=== PATIENT | female | born 1950 | race Hispanic/Latino ===

== ENCOUNTER 2019-01-10 09:03 | Observation (INO) | payer MEDICARE ==
[2019-01-06 14:13] LABS: BASOPHILS % 0.5 % (0.0-1.0); EOSINOPHILS # (AUTO) 0.2 (0.0-0.4); EOSINOPHILS % 3.3 % (0.0-6.0); HEMATOCRIT 36.1 % (34.2-44.1); HEMOGLOBIN 11.7 g/dL (12.0-16.0); LYMPHOCYTES # (AUTO) 0.6 (1.0-3.2); MEAN CORPUSCULAR HEMOGLOBIN 32.4 pg (28-32); MEAN CORPUSCULAR HGB CONC 32.4 g/dL (31-35); MONOCYTES # (AUTO) 0.9 (0.2-0.8); NEUTROPHILS # (AUTO) 5.6 (2.1-6.9); NEUTROPHILS % 75.9 % (38.7-80.0); PLATELET COUNT 398 x10e3/uL (140-360); RED BLOOD COUNT 3.61 x10e6/uL (3.6-5.1); RED CELL DISTRIBUTION WIDTH 15.3 % (11.7-14.4)
[2019-01-06 14:28] LABS: INR 0.85; PROTHROMBIN TIME 12.1 seconds (11.9-14.5)
[2019-01-06 14:37] LABS: ALBUMIN 3.7 g/dL (3.5-5.0); ALBUMIN/GLOBULIN RATIO 0.9 (0.8-2.0); ANION GAP 15.3 mmol/L (8-16); CREATININE, SERUM 1.61 mg/dL (0.57-1.11); POTASSIUM 5.3 mmol/L (3.5-5.1)
--- NOTE | 2019-01-06 16:28 | NUR ---
Dr. Merrill notified of elevated labs: BUN 36, creatinine 1.61, and potassium 5.3. No new orders at this time.
[2019-01-10] VITALS (7 sets, daily range): BP systolic 142–183; BP diastolic 60–85
[~2019-01-10] VITALS: Ht 160 cm; Wt 83.5 kg
--- OUTSIDE RECORDS SUMMARY | 2019-01-10 13:45 | XMS REPORT ---
Author [facility] Address Unknown Phone Unavailable Care Team Providers Care Crab Fisherman Name Role Phone Unavailable Unavailable Payers Payer Name Policy Type Policy Number Effective Date Expiration Date Problems This patient has no known problems. Allergies, Adverse Reactions, Alerts Allergy Name Allergy Type Status Severity Reaction(s) Onset Date Inactive Date Treating Clinician Comments No Known Allergies DA Active U 2015-03-28 00:00:00 Medications This patient has no known medications. Results Test Description Test Time Test Comments Text Results Atomic Results Result Comments PROTHROMBIN TIME 2018-09-30 09:16:00 PROTHROMBIN TIME PATIENT (test code=PTP) 11.2 seconds 9.0-14.0 INTERNATIONAL NORMAL RATIO (test code=INR) 0.9 0.8-1.2 The therapeutic range for oral anticoagulant therapy formost indications is an international normalized ratio (INR)of between 2.0 and 3.0. The recommended therapeutic INRrange for various clinical situations is listed below: Clinical Situation INR range Pulmonary e mbolism treatment (2.0-3.0)Venous thrombosis treatmentVenous thrombosis prophylaxis (high risk surgery)Prevention of systemic embolism from: Acute myocardial infarction Valvular heart disease Atrial fibrillation Mechanical prosthetic heart valves (2.5-3.5) IS PATIENT ON ANTICOAGULANTS? NTHROMBOPLASTIN TIME [id number] 09:16:00* Test Item Value Reference Range Comments THROMBOPLASTIN TIME PARTIAL (test code=PTT) 31.3 seconds 25.0-36.5 IS PATIENT ON ANTICOAGULANTS? NB-TYPE NATRIURETIC [id number] 09:10:00* Test Item Value Reference Range Comments B-TYPE NATRIURETIC PEPTIDE (test code=BNP) 505.60 pgram/mL 0-100 CBC W/O [id number] 08:39:00* Test Item Value Reference Range Comments WHITE BLOOD CELL (test code=WBC) 9.3 K/mm3 4.5-12.5 RED BLOOD CELL (test code=RBC) 3.27 mill/mm3 3.7-5.2 HEMOGLOBIN (test code=HGB) 9.8 gram/dL 11.5-15.5 HEMATOCRIT (test code=HCT) 31.5 % 36.0-46.0 MEAN CELL VOLUME (test code=MCV) 96.3 fL 80-98 MEAN CELL HGB (test code=MCH) 30.0 picogram 27.0-33.0 MEAN CELL HGB CONCETRATION (test code=MCHC) 31.1 gram/dL 33.0-36.0 RED CELL DISTRIBUTION WIDTH (test code=RDW) 13.8 % 11.6-16.2 PLATELET COUNT (test code=PLT) 348 K/mm3 150-450 MEAN PLATELET VOLUME (test code=MPV) 9.3 fL 6.7-11.0 BASIC METABOLIC [id number] 08:31:00* Test Item Value Reference Range Comments SODIUM (test code=NA) 129 mmol/L 136-145 POTASSIUM (test code=K) 4.6 mmol/L 3.5-5.1 CHLORIDE (test code=CL) 98.0 mmol/L 98-107 CARBON DIOXIDE (test code=CO2) 21.0 mmol/L 21-32 ANION GAP (test code=GAP) 14.6 10-20 GLUCOSE (test code=GLU) 95 mg/dL 74-106 BLOOD UREA NITROGEN (test code=BUN) 39 mg/dL 7-18 GLOMERULAR FILTRATION RATE (test code=GFR) 30 mL/min >=60 Estimated GFR by using Modified MDRD formula.Chronic kidney disease is defined as either kidney damageor GFR <60 mL/min/1.73 m2 for >3 months. CREATININE (test code=CREAT) 1.70 mg/dL 0.55-1.02 Note change in reference range due to change in reagent. BUN/CREATININE RATIO (test code=BUN/CREA) 22.9 10-20 CALCIUM (test code=CA) 8.9 mg/dL 8.5-10.1 HEPATIC FUNCTION [id number] 08:31:00* Test Item Value Reference Range Comments TOTAL PROTEIN (test code=PROT) 8.1 gram/dL 6.4-8.2 ALBUMIN (test code=ALB) 3.2 g/dL 3.4-5.0 GLOBULIN (test code=GLOB) 4.9 gram/dL 2.7-4.2 ALBUMIN/GLOBULIN RATIO (test code=A/G) 0.7 0.75-1.50 BILIRUBIN TOTAL (test code=BILT) 0.40 mg/dL 0.0-1.0 BILIRUBIN DIRECT (test code=BILD) 0.15 mg/dL 0.0-0.20 SGOT/AST (test code=AST) 17 IUnit/L 15-37 SGPT/ALT (test code=ALT) 22 IUnit/L 12-78 ALKALINE PHOSPHATASE TOTAL (test code=ALKP) 79 IUnit/L 45-117 Note change in reference range due to change in reagent. [id number] 08:31:00* Test Item Value Reference Range Comments LIPASE (test code=LIP) 190 U/L 73.0-393.0 [id number] 08:31:00* Test Item Value Reference Range Comments MAGNESIUM (test code=MAG) 1.9 mg/dL 1.8-2.4 [id number] 08:31:00* Test Item Value Reference Range Comments TROPONIN-I (test code=TROPI) <0.015 ng/mL 0-0.045 BASIC METABOLIC [id number] 08:22:00* Test Item Value Reference Range Comments SODIUM (test code=NA) 129 mmol/L 136-145 POTASSIUM (test code=K) 4.6 mmol/L 3.5-5.1 CHLORIDE (test code=CL) 98.0 mmol/L 98-107 CARBON DIOXIDE (test code=CO2) mmol/L 21-32 ANION GAP (test code=GAP) 10-20 GLUCOSE (test code=GLU) mg/dL 74-106 BLOOD UREA NITROGEN (test code=BUN) mg/dL 7-18 GLOMERULAR FILTRATION RATE (test code=GFR) mL/min >=60 CREATININE (test code=CREAT) mg/dL 0.55-1.02 BUN/CREATININE RATIO (test code=BUN/CREA) 10-20 CALCIUM (test code=CA) mg/dL 8.5-10.1 HEPATIC FUNCTION [id number] 08:22:00* Test Item Value Reference Range Comments TOTAL PROTEIN (test code=PROT) gram/dL 6.4-8.2 ALBUMIN (test code=ALB) g/dL 3.4-5.0 GLOBULIN (test code=GLOB) gram/dL 2.7-4.2 ALBUMIN/GLOBULIN RATIO (test code=A/G) 0.75-1.50 BILIRUBIN TOTAL (test code=BILT) mg/dL 0.0-1.0 BILIRUBIN DIRECT (test code=BILD) mg/dL 0.0-0.20 SGOT/AST (test code=AST) IUnit/L 15-37 SGPT/ALT (test code=ALT) IUnit/L 12-78 ALKALINE PHOSPHATASE TOTAL (test code=ALKP) IUnit/L 45-117 [id number] 08:22:00* Test Item Value Reference Range Comments LIPASE (test code=LIP) U/L 73.0-393.0 [id number] 08:22:00* Test Item Value Reference Range Comments MAGNESIUM (test code=MAG) mg/dL 1.8-2.4 [id number] 08:22:00* Test Item Value Reference Range Comments TROPONIN-I (test code=TROPI) ng/mL 0-0.045 - XR CHEST 1 [id number] 08:22:00 FAX: Diego Remy MD [phone] [place]: [address]: REG FAX: Darcy Morrow MD [phone] Name: KAREN AMBRIZ [facility] : 1950 Age/S: 67/F [address] [facility] Unit #: [id number] Loc: [place] [address] Phys: Darcy Morrow MD Acct: [id number] Dis Date: Status: REG ER PHONE #: [phone] Exam Date: 09/30/2018 0749 FAX #: [phone] Reason: Shortness of Breath EXAMS: CPT CODE: [id number] XR CHEST 1 V 28128 HISTORY: Shortness of breath. COMPARISON: April 18, 2018. Mild congestion. Small bibasal effusions. Dependent changes. Cardiomegaly. IMPRESSION: Mild congestion with small basilar effusions. at 0822 Reported and signed by: Abbe Yip M.D. CC: Diego Ledesma MD; Darcy Morrow MD Technologist: HOLLAND KULKARNI JR Trntxrd Date/Time/By: 09/30/2018 (0822) : By: [email or web address] Orig Print D/T: S: 09/30/2018 (0825) PAGE 1 Signed Report COLON [id number] 12:35:00 RUN DATE: 05/18/18 [facility] PAGE 1 RUN TIME: 1235 Specimen Inqui ry RUN USER: INTERFACE PATIENT: KAREN AMBRIZ ACCT #: [id number] [facility] #: [id number] AGE/SX: 67/F ROOM: RE05/17/18REG DR: Diego Ledesma MD : 52 BED: DIS: STATUS: [facility] TLOC: SPEC #: [id number] RECD: 05/17/18 STATUS: ZACHARY RE #: [id number] AMI: 05/17/[address] [facility] [address]: Diego Ledesma MD ENTERED: 05/17/18 SP TYPE: COLONBX OTHR DR: ORDERED: GROSS PROCEDURES: GROSS (05/18/18-1212) TISSUES: 1. ILEOCECAL VALVE - HS 2. DESCENDING COLON - HS 3. SI GMOID - POLYP HS 4. RECTUM, NOS - POLYP HS CLINICAL HISTORY C OLLECTION DATE: 05/17/18 COLON CANCER SCREENING POST-OP DIAGNOSIS: COLON POLYPS, INTERNAL HEMORRHOIDS FINAL DIAGNOSIS Ileocecal valve, hot bi opsy: COLONIC MUCOSA WITH SCATTERED PIGMENT-LADEN MACROPHAGES IN THE LAMI NA PROPRIA NO ACUTE INFLAMMATORY INFILTRATES IDENTIFIED N EGATIVE FOR MALIGNANCY Descending colon, hot biopsy: CAUTERIZED COL ONIC MUCOSA WITH A PROMINENT LYMPHOID AGGREGATE AND SCATTERED PIGMENT-L FRITZ MACROPHAGES IN THE LAMINA PROPRIA NEGATIVE FOR MALIGNANCY Sigm oid colon polyp, hot snare: TUBULAR ADENOMA NEGATIVE FOR MALIGNANC Y Rectal polyp, hot snare: HYPERPLASTIC POLYP WITH A PROMINENT LYMP HOID AGGREGATE NEGATIVE FOR MALIGNANCY IZZY/sm D (2) [id number] CONTINUED ON NEXT PAGE RUN DATE: [facility] PAGE 2 RUN TIME: 1235 Specimen Inquiry RU N USER: INTERFACE ---- --------SPEC #: [id number] PATIENT: KAREN AMBRIZ #[id number] (Continued) MACROSCOPIC The first specimen is received in formalin, labeled with the patient's name, identified as "ileocec al valve biopsy", and consists of a carlson biopsy fragment measuring 0.1 cm. The second specimen is received in formalin, labeled with the patient's name, identified as "descending colon biopsy", and consists of a carlson biopsy fragment measuring 0.2 cm. The third specimen is received in formalin, labeled with the patient's name, identified as "sigmoid polyp HS", and consists of a carlson biopsy fragment measuring 0.25 cm. The fourth specimen is received in formalin, labeled with the patient's name, identified as "rectal polyp", and c onsists of a red-carlson nodular fragment of tissue measuring 0.3 cm. It is bise cted and submitted for microscopic evaluation in cassette (4). GROSS PER FORMED AT [facility] [address] [place] [id number] [phone] MICROSCOPIC MICROSCOPIC PERFOR MED AT [facility] All of the stains, including any controls perfor med, stain appropriately. [facility] [address] [place] [address], [place] [address] [phone] PERFORMING SITE Diagnosis performed at: [facility], [place] [address] [facility], [place] [address] Signed SIGNATURE ON FILE Armida Jimenes 05/18/18 1235 END OF REPORT
[2019-01-10] MEDS ORDERED: CALTRATE-600 W1 EACH PO (14:05)
[2019-01-10] MEDS ORDERED: FUROSEMIDE40 MG PO (14:05)
[2019-01-10] MEDS ORDERED: LOSARTAN POTAS100 MG PO (14:05)
[2019-01-10] MEDS ORDERED: METOPROLOL SUCC50 MG PO (14:05)
[2019-01-10] MEDS ORDERED: GLIMEPIRIDE2 MG PO (14:05)
[2019-01-10] MEDS ORDERED: TRADJENTA5 MG PO (14:05)
[2019-01-10] MEDS ORDERED: PANTOPRAZOLE SO40 MG PO (14:05)
[2019-01-10] MEDS ORDERED: PIOGLITAZONE HC45 MG PO (14:05)
[2019-01-10] MEDS ORDERED: LEVOTHYROXINE100 MC1 IV (14:05)
[2019-01-10] MEDS ORDERED: ATORVASTATIN CA20 MG PO (14:05)
[2019-01-10] MEDS ORDERED: TIZANIDINE HCL4 MG PO (14:05)
[2019-01-10] MEDS ORDERED: NOVOLOG MI100 UNIT/1 SC (14:05)
[2019-01-10] MEDS ORDERED: GABAPENTIN400 MG PO (14:05)
[2019-01-10] MEDS ORDERED: LIDOCAINE HCL 2% LOCAL 20 ML VIAL ONE (15:15)
[2019-01-10] MEDS ORDERED: FENTANYL CITRATE/PF 100MCG/2 ML INJ ONE (15:15)
[2019-01-10] MEDS ORDERED: HEPARIN SOD/SOD CHLORIDE 2,000 ML ONE (15:15)
[2019-01-10] MEDS ORDERED: IOPAMIDOL 300MG/ML 100 ML INFUS..BTL IV ONE ×2 (15:15→16:37)
[2019-01-10] MEDS ORDERED: MIDAZOLAM HCL 2 MG/2 ML VIAL ONE ×2 (15:15→16:19)
[2019-01-10] MEDS ORDERED: SODIUM CHLORIDE 0.9% 1000ML 1,000 ML ONE (15:16)
[2019-01-10] MEDS ORDERED: HYDRALAZINE HCL 20 MG/ML VIAL ONE (16:27)
[2019-01-10] MEDS ORDERED: PRASUGREL 10 MG TAB ONE (16:38)
[2019-01-10] MEDS ORDERED: ASPIRIN 325 MG TAB ONE (16:38)
--- NOTE | 2019-01-10 17:12 | NUR ---
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 Pt A/A VSS denies complaint. Family at bedside. RT groin dressing intact no s/sx of bleeding or hematoma noted. sandwich and pudding given to pt spouse is assisting with meal.
--- NOTE | 2019-01-10 18:36 | NUR ---
Pt transferred to room 186 Tele/obs via [facility] & bedside report to Denton SMITH Pt A/A VSS at bedside
--- NOTE | 2019-01-10 19:09 | NUR ---
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 patient is off of bed rest. patient is resting in bed comfortably. denies pain or discomfort. telemetry box is on. patient is to be discharged home tonight at 9pm. sheath dressing is clean dry and intact. will continue to monitor patient.
--- NOTE | 2019-01-13 06:53 | Operative Report ---
DATE OF PROCEDURE: 01/10/2019 SURGEON: Pernell Merrill MD INDICATIONS: 1. Peripheral arterial disease with claudication. 2. Coronary artery disease with abnormal stress test and angina. PROCEDURES PERFORMED: 1. Left heart catheterization, selective coronary angiography. 2. PTCA and stent placement to the mid left anterior descending artery. 3. Abdominal aortogram runoff to bilateral femoral arteries for right groin Mynx closure device. COMPLICATIONS: None. RECOMMENDATIONS: Dual antiplatelet therapy for at least 6 months. DESCRIPTION OF PROCEDURE: Access obtained in the right femoral artery. A 6-Colombian sheath was placed. Coronary angiography revealed mild disease in the circumflex and left main coronary artery. Right coronary artery 50% stenosis. Left anterior descending artery, mid 80% stenosis. LV end-diastolic pressure of 10. No gradient across the aortic valve on pullback. Abdominal aortogram runoff demonstrated mild diffuse peripheral arterial disease with three vessel runoff to both lower extremities, approximately 20% plaque burden diffusely. A decision was made to intervene on the left anterior descending artery. The patient received intravenous Angiomax for anticoagulation. The left main was cannulated using a 6-Colombian XB catheter. Primary stent 2.5 x 12 mm Resolute Bran deployed at 14 atmospheres. Excellent end result, less than 10% residual stenosis, TALIA-3 flow. No complications. Right groin repaired using Mynx closure device. The patient discharged home same day. Pernell Merrill MD KSB/MODL /[id number]
== END 2019-01-10 22:08 | disposition home or self-care (01) ==
LOC: CATH LAB 09:03 → IMCU 18:25
PROVIDERS: ADMIT Internal Medicine Interventional Cardiology; ATTEND Internal Medicine Interventional Cardiology
DX: I25.10 Atherosclerotic heart disease of native coronary artery without angina pectoris (principal); I70.213 Atherosclerosis of native arteries of extremities with intermittent claudication, bilateral legs; Z01.812 Encounter for preprocedural laboratory examination
CPT/HCPCS: 36200; 93458; C9600; 36415; 75630; 80053; 85025; 85610; 92928; C1760; C1769; C1874; C1887; G0378; J0360; J2001; J2250; J3010; J7030; Q9967

== ENCOUNTER 2020-04-26 18:51 | Inpatient (IN) | payer MEDICARE, OTHER ==
[~2020-04-26] VITALS: Ht 160 cm; Wt 90.7 kg
[~2020-04-26 18:51] MED LIST: ATORVASTATIN CA20 MG PO; CALTRATE-600 W1 EACH PO; FUROSEMIDE40 MG PO; GABAPENTIN400 MG PO; GLIMEPIRIDE2 MG PO; LEVOTHYROXINE100 MC1 IV; LOSARTAN POTAS100 MG PO; METOPROLOL SUCC50 MG PO; NOVOLOG MI100 UNIT/1 SC; PANTOPRAZOLE SO40 MG PO; PIOGLITAZONE HC45 MG PO; TIZANIDINE HCL4 MG PO; TRADJENTA5 MG PO
--- NOTE | 2020-04-26 19:36 | NUR ---
ER MD IN TRIAGE FOR INITIAL EVAL.
[2020-04-26 19:54] LABS: BASOPHILS % 0.2 % (0.0-1.0); EOSINOPHILS # (AUTO) 0.2 (0.0-0.4); EOSINOPHILS % 2.9 % (0.0-6.0); HEMATOCRIT 32.6 % (34.2-44.1); HEMOGLOBIN 10.2 g/dL (12.0-16.0); LYMPHOCYTES # (AUTO) 0.6 (1.0-3.2); MEAN CORPUSCULAR HGB CONC 31.3 g/dL (31-35); MEAN CORPUSCULAR VOLUME 99.1 fL (81-99); MONOCYTES # (AUTO) 0.6 (0.2-0.8); MONOCYTES % 11.3 % (4.4-11.3); NEUTROPHILS # (AUTO) 4.2 (2.1-6.9); NEUTROPHILS % 74.4 % (38.7-80.0); PLATELET COUNT 298 x10e3/uL (140-360); RED BLOOD COUNT 3.29 x10e6/uL (3.6-5.1); RED CELL DISTRIBUTION WIDTH 14.5 % (11.7-14.4)
--- NOTE | 2020-04-26 20:10 | Emergency Department Note ---
History of Present Illnes History of Present Illness Chief Complaint: General Medicine Complaints History of Present Illness This is a 69 year old female sent from her PCPs office for elevated potassium low hemoglobin. Patient complaining of generalized malaise.. Chief Complaint Comment 69 Y/O FEMALE PT AAOX3 PRESENTS TO THE ER C/O HIGH POTASSIUM AND LOW HEMAGLOBIN; PT HAD LABS DONE ON 04/23/20 AND HAD POTASSIUM 6.1 AND HGB 10.3; NAD NOTED AT THIS TIME; V/S/S; RESP EVEN/UNLABORED; BLOOD OBTAINED FOR ANALYSIS; EKG PERFORMED AND GIVEN TO ER MD FOR REVIEW. Historian: Patient Arrival Mode: Car Onset (how long ago): unknown Onset quality: unable to specify Timing of current episode: unable to specify Progression: unable to specify Chronicity: new Relieving factors: none Past Medical/Family History Physician Review I have reviewed the patient's past medical and family history. Any updates have been documented here. Past Medical History Recent Fever: No Clinical Suspicion of Infectio: No New/Unexplained Change in Ment: No Past Medical History: Hypertension, Diabetes, Hypothyroidism, CAD, Hyperlipede jj Other Medical History: HX OF FALLS NEUROPATHY Past Surgical History: Hysterectomy, Pacer/AICD Other Surgery: BACK SX Review of Systems Review of Systems Constitutional: Reports no symptoms EENTM: Reports no symptoms Cardiovascular: Reports no symptoms Respiratory: Reports no symptoms Gastrointestinal: Reports no symptoms Genitourinary: Reports no symptoms Musculoskeletal: Reports no symptoms Integumentary: Reports no symptoms Neurological: Reports no symptoms Psychological: Reports no symptoms Endocrine: Reports no symptoms Hematological/Lymphatic: Reports no symptoms Physical Exam Related Data Allergies: Coded Allergies: No Known Allergies (Verified , 05/19/10) Triage Vital Signs Vital Signs Date Time Temp Pulse Resp B/P (MAP) Pulse Ox O2 Delivery O2 Flow Rate FiO2 04/26/20 19:28 97.7 82 20 134/52 99 Room Air Vital signs reviewed: Yes Physical Exam CONSTITUTIONAL Constitutional: Present well-developed, Present well-nourished HENT HENT: Present normocephalic, Present atraumatic, Present oropharynx clear/moist, Present nose normal HENT L/R: Present left ext ear normal, Present right ext ear normal EYES Eyes: Reports PERRL, Reports conjunctivae normal NECK Neck: Present ROM normal PULMONARY Pulmonary: Present effort normal, Present breath sounds normal CARDIOVASCULAR Cardiovascular: Present regular rhythm, Present heart sounds normal, Present capillary refill normal, Present normal rate GASTROINTESTINAL Abdominal: Present soft, Present nontender, Present bowel sounds normal GENITOURINARY Genitourinary: Present exam deferred SKIN Skin: Present warm, Present dry MUSCULOSKELETAL Musculoskeletal: Present ROM normal NEUROLOGICAL Neurological: Present alert, Present oriented x 3, Present no gross motor or sensory deficits PSYCHOLOGICAL Psychological: Present mood/affect normal, Present judgement normal Results Laboratory Result Diagram: 04/26/201944 Laboratory Laboratory Tests Test 04/26/20 19:45 White Blood Count 5.57 x10e3/uL (4.8-10.8) Red Blood Count 3.29 x10e6/uL (3.6-5.1) Hemoglobin 10.2 g/dL (12.0-16.0) Hematocrit 32.6 % (34.2-44.1) Mean Corpuscular Volume 99.1 fL (81-99) Mean Corpuscular Hemoglobin 31.0 pg (28-32) Mean Corpuscular Hemoglobin Concent 31.3 g/dL (31-35) Red Cell Distribution Width 14.5 % (11.7-14.4) Platelet Count 298 x10e3/uL (140-360) Neutrophils (%) (Auto) 74.4 % (38.7-80.0) Lymphocytes (%) (Auto) 11.0 % (18.0-39.1) Monocytes (%) (Auto) 11.3 % (4.4-11.3) Eosinophils (%) (Auto) 2.9 % (0.0-6.0) Basophils (%) (Auto) 0.2 % (0.0-1.0) Neutrophils # (Auto) 4.2 (2.1-6.9) Lymphocytes # (Auto) 0.6 (1.0-3.2) Monocytes # (Auto) 0.6 (0.2-0.8) Eosinophils # (Auto) 0.2 (0.0-0.4) Basophils # (Auto) 0.0 (0.0-0.1) Absolute Immature Granulocyte (auto 0.01 x10e3/uL (0-0.1) Lab results reviewed: Yes Laboratory comments Laboratory Tests Test 04/26/20 22:44 04/26/20 19:45 White Blood Count 5.57 x10e3/uL (4.8-10.8) Red Blood Count 3.29 x10e6/uL (3.6-5.1) Hemoglobin 10.2 g/dL (12.0-16.0) Hematocrit 32.6 % (34.2-44.1) Mean Corpuscular Volume 99.1 fL (81-99) Mean Corpuscular Hemoglobin 31.0 pg (28-32) Mean Corpuscular Hemoglobin Concent 31.3 g/dL (31-35) Red Cell Distribution Width 14.5 % (11.7-14.4) Platelet Count 298 x10e3/uL (140-360) Neutrophils (%) (Auto) 74.4 % (38.7-80.0) Lymphocytes (%) (Auto) 11.0 % (18.0-39.1) Monocytes (%) (Auto) 11.3 % (4.4-11.3) Eosinophils (%) (Auto) 2.9 % (0.0-6.0) Basophils (%) (Auto) 0.2 % (0.0-1.0) Neutrophils # (Auto) 4.2 (2.1-6.9) Lymphocytes # (Auto) 0.6 (1.0-3.2) Monocytes # (Auto) 0.6 (0.2-0.8) Eosinophils # (Auto) 0.2 (0.0-0.4) Basophils # (Auto) 0.0 (0.0-0.1) Absolute Immature Granulocyte (auto 0.01 x10e3/uL (0-0.1) Sodium Level 138 mmol/L (136-145) Potassium Level 5.4 mmol/L (3.5-5.1) Chloride Level 104 mmol/L (98-107) Carbon Dioxide Level 23 mmol/L (22-29) Anion Gap 16.4 mmol/L (8-16) Blood Urea Nitrogen 73 mg/dL (7-26) Creatinine 2.56 mg/dL (0.57-1.11) Estimat Glomerular Filtration Rate 19 ML/MIN (60-) BUN/Creatinine Ratio 29 (6-25) Glucose Level 173 mg/dL (74-118) Calcium Level 9.2 mg/dL (8.4-10.2) Total Bilirubin 0.3 mg/dL (0.2-1.2) Aspartate Amino Transf (AST/SGOT) 21 IU/L (5-34) Alanine Aminotransferase (ALT/SGPT) 13 IU/L (0-55) Alkaline Phosphatase 91 IU/L (40-150) Creatine Kinase 92 IU/L (29-168) Creatine Kinase MB 3.60 ng/mL (0-5.0) Troponin I 0.005 ng/mL (0-0.300) Total Protein 7.8 g/dL (6.5-8.1) Albumin 4.0 g/dL (3.5-5.0) Globulin 3.8 g/dL (2.3-3.5) Albumin/Globulin Ratio 1.1 (0.8-2.0) Procedures 12 Lead ECG Interpretation ECG Interpretation : ECG: ECG 1 Tile Sprayer: Interpreted by ED physician Rhythm: sinus rhythm QRS axis: normal Assessment & Plan Medical Decision Making MDM 61-year-old female arrived to the ED with hyperkalemia and acute renal failure. Patient's potassium corrected with D50, insulin and Kayexalate. Nephrology consulted for acute renal failure. Patient admitted for further workup and management. Assessment & Plan Final Impression: (1) Acute renal failure (2) Hyperkalemia Depart Disposition: ADMITTED Last Vital Signs Date Time Temp Pulse Resp B/P (MAP) Pulse Ox O2 Delivery O2 Flow Rate FiO2 04/26/20 19:28 97.7 82 20 134/52 99 Room Air Home Meds Reported Medications Insuln Asp Prt/Insulin Aspart (NOVOLOG MIX 70-30 FLEXPEN SYRN) 100 Unit/1 Ml Insuln.pen, 10 U SC QAM 01/10/19 Linagliptin (TRADJENTA) 5 Mg Tablet, 5 MG PO DAILY 01/10/19 Calcium Carbonate/Vitamin D3 (CALTRATE-600 WITH VIT D TAB) 1 Each Tablet, 1 TAB PO DAILY 01/10/19 Furosemide (FUROSEMIDE) 40 Mg Tablet, 40 MG PO Daily, #30 TAB 01/10/19 Metoprolol Succinate (METOPROLOL SUCCINATE) 50 Mg Tab.er.24h, 100 MG PO DAILY, MG 01/10/19 Glimepiride (GLIMEPIRIDE) 2 Mg Tablet, 4 MG PO WITH BREAKFAST, #2 TAB 01/10/19 Losartan Potassium (LOSARTAN POTASSIUM) 100 Mg Tablet, 100 MG PO DAILY, TAB 01/10/19 Pantoprazole Sodium* (PROTONIX) 40 Mg Tablet.dr, 40 MG PO DAILY, TAB 01/10/19 Tizanidine Hcl (TIZANIDINE HCL) 4 Mg Tablet, 4 MG PO DAILY for 10 Days, TAB 01/10/19 Levothyroxine Sodium (LEVOTHYROXINE SODIUM) 100 Mcg Vial, 100 MCG IV DAILY, VIAL 01/10/19 Atorvastatin Calcium (ATORVASTATIN CALCIUM) 20 Mg Tablet, 20 MG PO HS, #30 TAB 01/10/19 Pioglitazone Hcl (PIOGLITAZONE HCL) 45 Mg Tablet, 30 MG PO DAILY, #30 TAB 01/10/19 Gabapentin (GABAPENTIN) 400 Mg Capsule, 400 MG PO DAILY, #30 CAP 01/10/19 JOSÉ MIGUEL ROBB, Apr 26, 2020 20:10
[2020-04-26 20:12] LABS: ALBUMIN/GLOBULIN RATIO 1.1 (0.8-2.0); ANION GAP 16.4 mmol/L (8-16); CALCIUM 9.2 mg/dL (8.4-10.2); CREATININE, SERUM 2.56 mg/dL (0.57-1.11); POTASSIUM 5.4 mmol/L (3.5-5.1)
[2020-04-26 20:19] LABS: CREATINE KINASE MB 3.6 ng/mL (0-5.0)
--- OUTSIDE RECORDS SUMMARY | 2020-04-26 21:17 | XMS REPORT | Continuity of Care Document ---
Author Author [facility] t Organization [facility] Address [address] [place] [address] Phone Unavailable Care Team Providers Care Lead Painter Name Role Phone GENE STOUT MD PCP Mika Hermosillo Attphys Payers Payer Name Policy Type Policy Number Effective Date Expiration Date S ource Medicare A & B [id number] 2018 00:00:00 C [facility] TMHP [id number] [facility] Problems Condition Name Condition Details Condition Category Status Onset Date Resolution Date Last Treatment Date Treating Clinician Comments Source ANEMIA 280.9 ANEM [place] 280.9 Active 04/29/2011 [facility] Diagnosis Active 2011-04-29 00:00:00 2011-04-29 14:27:00 Woody Jensen ANEMIA 285.9 ANEM IA 285.9 Active 04/29/2011 [facility] Active 2011-04-29 00:00:00 2011-05-05 09:40:00 Woody Jensen Diabetes mellitus type II Diab etes mellitus type II Active Problem 05/07/2011 [facility] Problem Active 2011-05-07 09:3 7:50 Woody Jensen HTN - Hypertension HTN - Hypertension Active Problem 05/07/2011 [facility] Problem Active 2011-05-07 09:37:50 Woody Jensen Macular disease Macu lar disease Active Problem 05/07/2011 [facility] Problem Active 2011-05-07 09:37:50 Woody Jensen Diabetes mellitus type 2 (disorder) Diabetes mellitus type 2 (disorder) Active Problem 09/07/2019 OPID Osteen Problem Active 2019-09-07 23:26:21 Woody Jensen Hypertensive disorder, systemic arterial (disorder) Hypertensive disorder, systemic arterial (disorder) Active Problem 09/07/2019 OPID Osteen Problem Active 2019-09-07 23:26:21 Woody Jensen 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 Problem 09/07/2019 CHELSEAD Osteen Problem Active 2019-09-07 23:26:21 Jose Jensen LOW BACK PAIN LOW BACK PAIN Active [facility] Active 2011-04-21 12:37:00 Woody Jensen BACKACHE NOS BACK ACHE NOS Active [facility] Active 2011-04-21 12:37:00 Memor tayo Jensen ANEMIA NOS ANEM IA NOS Active [facility] Active 2011-05-05 09:40:00 Jose Jensen Allergies, Adverse Reactions, Alerts Allergy Name Allergy Type Status Severity Reaction(s) Onset Date Inacti ve Date Treating Clinician Comments Source No Known Allergies DA Active U 2015-03-28 00:00:00 [facility] No Known Medication Allergies No Known Medication Allergies [facility] Medications Ordered Medication Name Filled Medication Name Start Date Stop Da te Current Medication? Ordering Clinician Indication Dosage Frequency Signature (SIG) Comments Components Source Duetact 30 mg-2 mg oral tablet 2011-05-05 16:27:46 Yes 1 tab, PO, Daily, 30 tab, Substitution Allowed, Maintenance, TAB Woody Jensen Bystolic 10 mg oral tablet 2011-05-05 16:27:20 Yes 1 tab, PO, Daily, 30 tab, Substitution Allowed, TAB Shaquille Hamlin Janumet 50 mg/1000 mg oral tablet 2011-05-05 16:27:07 Yes 1 tab, PO, BID, 60 tab, Substitution Allowed, Maintenance, TAB Woody [place] amlodipine-atorvastatin 5 mg-20 mg oral tablet 2011-05-05 16:26: 50 Yes 1 tab, PO, Daily, 30 tab, Substitution Allowed, [place] n[place], TAB Woody Jensen aspirin 81 mg tablet, enteric coated 2011-05-05 16:26:23 Ye s 1 tab, PO, Daily, 0 tab, Substitution Allowed, ECTAB [facility] lovastatin 40 mg oral tablet 2011-05-05 16:26:06 Yes 1 tab, PO, Daily, 30 tab, Substitution Allowed, TAB Woody Mikey gabapentin 400 mg oral capsule 2011-05-05 16:25:54 Yes 1 cap, PO, QID, 120 cap, Substitution Allowed Seanbashir duncanodette Jensen levothyroxine 75 mcg (0.075 mg) oral tablet 2011-05-05 16:25:38 Yes 1 tab, PO, Daily, 30 tab, Substitution Allowed, TAB [facility] Mikey Atorvastatin Calcium 20 Mg Tablet Atorvastatin Calcium 20 Mg Tablet Yes 20 Bedtime [facility] Calcium Carbonate/Vitamin D3 (Caltrate-600 With Vit D Tab) 1 Each Tablet Calcium Carbonate/Vitamin D3 (Caltrate-600 With Vit D Tab) 1 Each Tablet Yes 1 Daily [facility] Furosemide 40 Mg Tablet Furosemide 40 Mg Tablet Yes 40 Daily [facility] Gabapentin 400 Mg Capsule Gabapentin 400 Mg Capsule Yes 400 Daily [facility] Glimepiride 2 Mg Tablet Glimepiride 2 Mg Tablet Yes 4 With Breakfast [facility] Insuln Asp Prt/Insulin Aspart (Novolog M ix 70-30 Flexpen Syrn) 100 Unit/1 Ml Insuln.pen Insuln Asp Prt/Insulin Aspart (Novolog M ix 70-30 Flexpen Syrn) 100 Unit/1 Ml Insuln.pen Yes 10 Every Morning [facility] Levothyroxine Sodium 100 Mcg Vial Levothyroxine Sodium 100 Mcg Vial Yes 100 Daily [facility] Linagliptin (Tradjenta) 5 Mg Tablet Linagliptin (Tradjenta) 5 Mg Tabl et Yes [address] [facility] Losartan Potassium 100 Mg Tablet Losartan Potassium 100 Mg Tablet Yes 100 Daily [facility] Metoprolol Succinate 50 Mg Tab.er.24h Metoprolol Succinate 50 Mg Ta b.er.24h Yes 100 Daily [facility] Pantoprazole Sodium (Protonix) 40 Mg Tablet. Pantopr azole Sodium (Protonix) 40 Mg Tablet. Yes 40 Daily [facility] Pioglitazone Hcl 45 Mg Tablet Pioglitazone Hcl 45 Mg Tablet Yes 30 Daily [facility] Tizanidine Hcl 4 Mg Tablet Tizanidine Hcl 4 Mg Tablet Yes 4 Daily [facility] Vital Signs Vital Name Observation Time Observation Value Comments Source Weight 2011-05-05 16:00:00 Woody Jensen Height 2011-05-05 16:00:00 167.64 cm [facility] Procedures This patient has no known procedures. Encounters Start Date/Time End Date/Time Encounter Type Admission Type Attendi [facility] Care Department Encounter ID Source 2019-09-05 13:04:00 2019-09-05 23:59:00 Outpatient Vibha Hermosillo [facility] [id number] 2019-01-10 18:25:00 2019-01-10 22:08:00 Discharged Inpatient (obs) [facility] [id number] [facility] Results Test Description Test Time Test Comments Results Result Comments Source SCR MAMM BILATERAL TR CAD DIGITAL 2020-03-21 16:00:45 - SCR MAMM BILATERAL TR CAD DIGITALBILATERAL DIGITAL SCREENING MAMMOGRAM 3D/2D WITH CAD: 03/21/2020CLINICAL: Asymptomatic. Digital breast tomosynthesis was performed in addition to routine CC and MLO views. Current mammographic images were evaluated by either a [employer] M-Vu or a [place] ImageChecker CAD (computer aided detection system). Comparison is made to exams dated 03/14/2019 mammogram, 03/17 mammogram, and 03/03/2017 mammogram - [facility]. The tissue of both breasts is heterogeneously dense. This may lower the sensitivity of mammography. No suspicious mass, architectural distortion, malignant type calcification, or lymph node abnormality detected. Breast architecture is stable compared to prior exams.IMPRESSION: NEGATIVEThere is no mammographic evidence of malignancy. Resume annual screening mammography in one year. Gucci Rutledge M.D. ss/penrad:03/21/2020 16:00:45 Remote Broadcast Technician: Rosetta HIRSCH, [facility]FWletter sent: BIRADS 1-2 Normal Mammogram BI-RADS: 1 Negative Sodium Level 2019-01-06 14:38:00 Test Item Sodium Level (test code = 2951-2) 130 136-145 L [facility]Potassium [id number] 14:38:00* Test Item Value Reference Range Interpretation Comments Potassium Level (test code = 2823-3) 5.3 3.5-5.1 H [facility]iscoChloride [id number] 14:38:00* Test Item Value Reference Range Interpretation Comments Chloride Level (test code = 2075-0) 94 98-107 L [facility]iscoCarbon Dioxide [id number] 14:38:00* Test Item Value Reference Range Interpretation Comments Carbon Dioxide Level (test code = 2028-9) 26 22-29 [facility]iscoAnion [id number] 14:38:00* Test Item Value Reference Range Interpretation Comments Anion Gap (test code = 84645-8) 15.3 8-16 [facility]isco[facility] Urea Gahtohla4480-31-59 14:38:00* Test Item Value Reference Range Interpretation Comments Blood Urea Nitrogen (test code = 3094-0) 36 7-26 H [facility]iscoCreatinine2019-07-19 14:38:00* Test Item Value Reference Range Interpretation Comments Creatinine (test code = 2160-0) 1.61 0.57-1.11 H [facility]iscoBUN/Creatinine [id number] 14:38:00* Test Item Value Reference Range Interpretation Comments BUN/Creatinine Ratio (test code = 3097-3) 22 6-25 [facility] FriscoEstimat Glomerular Filtration Rate 2019-01-06 14:38:00* Test Item Value Reference Range Interpretation Comments Estimat Glomerular Filtration Rate (test code = 825823850) 32 >60 L Ranges were taken from the National Kidney Disease Education Program and the [facility] Foundation literature.Reference ranges:60 or greater: Rojpwa47-91 ( for 3 consecutive months): Chronic kidney disease 15 or less: Kidney failureBaylor Scott and White Medical Center – FriscoGlucose Wjnur0627-69-52 14:38:00* Test Item Value Reference Range Interpretation Comments Glucose Level (test code = MII2731) 188 74-118 H [facility]iscoCalcium [id number] 14:38:00* Test Item Value Reference Range Interpretation Comments Calcium Level (test code = 24629-5) 10.0 8.4-10.2 [facility] FriscoTotal Kpbmbciii7588-79-44 14:38:00* Test Item Value Reference Range Interpretation Comments Total Bilirubin (test code = 1975-2) 0.3 0.2-1.2 [facility] FriscoAspartate Amino Transf (AST/SGOT) 2019-01-06 14:38:00* Test Item Value Reference Range Interpretation Comments Aspartate Amino Transf (AST/SGOT) (test code = Aspartate Amino Transf (AST/SGOT)) 19 5-34 [facility] FriscoAlanine Aminotransferase (ALT/SGPT) 2019-01-06 14:38:00* Test Item Value Reference Range Interpretation Comments Alanine Aminotransferase (ALT/SGPT) (test code = 1742-6) 14 0-55 [facility] FriscoTotal Uljljtw4368-50-67 14:38:00* Test Item Value Reference Range Interpretation Comments Total Protein (test code = 2885-2) 7.6 6.5-8.1 [facility] FriscoAlbumin2019-07-19 14:38:00* Test Item Value Reference Range Interpretation Comments Albumin (test code = 1751-7) 3.7 3.5-5.0 [facility]iscoGlobulin2019-07-19 14:38:00* Test Item Value Reference Range Interpretation Comments Globulin (test code = 24423-8) 3.9 2.3-3.5 H [facility] FriscoAlbumin/Globulin Vlngr4937-77-25 14:38:00 * Test Item Value Reference Range Interpretation Comments Albumin/Globulin Ratio (test code = 1759-0) 0.9 0.8-2.0 [facility] FriscoAlkaline Vogafobawyz0418-16-14 14:38:00* Test Item Value Reference Range Interpretation Comments Alkaline Phosphatase (test code = 6768-6) 81 40-150 [facility] FriscoProthrombin Tmpu7676-92-58 14:29:00* Test Item Value Reference Range Interpretation Comments Prothrombin Time (test code = 5902-2) 12.1 11.9-14.5 [facility] FriscoProthromb Time International Ratio 2019-01-06 14:29:00* Test Item Value Reference Range Interpretation Comments Prothromb Time International Ratio (test code = 6301-6) 0.85 Oral Anticoagulant Therapy INR Values:1. Low Intensity Therapy 1.5 - 2.02 . Moderate Intensity Therapy 2.0 - 3.03. High Intensity Therapy(1) 2.5 - 3. 54. High Intensity Therapy(2) 3.0 - 4.05. Panic Value INR > 5.0 [facility] FriscoWhite Blood Mubig1445-45-58 14:20:00* Test Item Value Reference Range Interpretation Comments White Blood Count (test code = 6690-2) 7.36 4.8-10.8 [facility] FriscoRed Blood Mvqhj4437-80-10 14:20:00* Test Item Value Reference Range Interpretation Comments Red Blood Count (test code = 789-8) 3.61 3.6-5.1 [facility]iscoHemoglobin2019-07-19 14:20:00* Test Item Value Reference Range Interpretation Comments Hemoglobin (test code = 96094-1) 11.7 12.0-16.0 L [facility] FriscoHematocrit2019-07-19 14:20:00* Test Item Value Reference Range Interpretation Comments Hematocrit (test code = 4544-3) 36.1 34.2-44.1 [facility] FriscoMean Corpuscular Nkqwug3509-12-19 14:20:00* Test Item Value Reference Range Interpretation Comments Mean Corpuscular Volume (test code = 787-2) 100.0 81-99 H [facility] FriscoMean Corpuscular Lvmyhurecx6709-66-28 14:20:00* Test Item Value Reference Range Interpretation Comments Mean Corpuscular Hemoglobin (test code = 785-6) 32.4 28-32 H [facility] Corpuscular Hemoglobin Concent 2019-01-06 14:20:00* Test Item Value Reference Range Interpretation Comments Mean Corpuscular Hemoglobin Concent (test code = 786-4) 32.4 31-35 [facility] FriscoRed Cell Distribution [id number] 14:20:00* Test Item Value Reference Range Interpretation Comments Red Cell Distribution Width (test code = 24516-5) 15.3 11.7 -14.4 H [facility] FriscoPlatelet Wqgdj4185-32-08 14:20:00* Test Item Value Reference Range Interpretation Comments Platelet Count (test code = 777-3) 398 140-360 H [facility] FriscoNeutrophils (%) (Auto)2019-01-06 14:20:00 * Test Item Value Reference Range Interpretation Comments Neutrophils (%) (Auto) (test code = 77720-2) 75.9 38.7-80.0 [facility] FriscoLymphocytes (%) (Auto)2019-01-06 14:20:00 * Test Item Value Reference Range Interpretation Comments Lymphocytes (%) (Auto) (test code = 736-9) 8.0 18.0-39.1 L [facility] FriscoMonocytes (%) (Auto)2019-01-06 14:20:00* Test Item Value Reference Range Interpretation Comments Monocytes (%) (Auto) (test code = 5905-5) 12.0 4.4-11.3 H [facility]iscoEosinophils (%) (Auto)2019-01-06 14:20:00 * Test Item Value Reference Range Interpretation Comments Eosinophils (%) (Auto) (test code = 713-8) 3.3 0.0-6.0 [facility]iscoBasophils (%) (Auto)2019-01-06 14:20:00* Test Item Value Reference Range Interpretation Comments Basophils (%) (Auto) (test code = 706-2) 0.5 0.0-1.0 [facility] FriscoIM GRANULOCYTES %2019-01-06 14:20:00* Test Item Value Reference Range Interpretation Comments IM GRANULOCYTES % (test code = IM GRANULOCYTES %) 0.3 0.0- 1.0 [facility] FriscoNeutrophils # (Auto)2019-01-06 14:20:00* Test Item Value Reference Range Interpretation Comments Neutrophils # (Auto) (test code = 751-8) 5.6 2.1-6.9 [facility] FriscoLymphocytes # (Auto)2019-01-06 14:20:00* Test Item Value Reference Range Interpretation Comments Lymphocytes # (Auto) (test code = 07513-2) 0.6 1.0-3.2 L [facility] FriscoMonocytes # (Auto)2019-01-06 14:20:00* Test Item Value Reference Range Interpretation Comments Monocytes # (Auto) (test code = 742-7) 0.9 0.2-0.8 H [facility]iscoEosinophils # (Auto)2019-01-06 14:20:00* Test Item Value Reference Range Interpretation Comments Eosinophils # (Auto) (test code = 711-2) 0.2 0.0-0.4 [facility]iscoBasophils # (Auto)2019-01-06 14:20:00* Test Item Value Reference Range Interpretation Comments Basophils # (Auto) (test code = 704-7) 0.0 0.0-0.1 [facility] FriscoAbsolute Immature Granulocyte (auto 2019-01-06 14:20:00* Test Item Value Reference Range Interpretation Comments Absolute Immature Granulocyte (auto (jovi t code = Absolute Immature Granulocyte (auto) 0.02 0-0.1 [facility] FriscoPROTHROMBIN [id number] 09:16:00* Test Item Value Reference Range Interpretation Comments PROTHROMBIN TIME PATIENT (test code = PTP) 11.2 seconds 9.0-14.0 N INTERNATIONAL NORMAL RATIO (test code = INR) 0.9 0.8-1.2 N The therapeutic range for oral anticoagulant therapy [...] (2.5-3.5) IS PATIENT ON ANTICOAGULANTS? NTHROMBOPLASTIN TIME [id number] 09:16:00* Test Item Value Reference Range Interpretation Comments THROMBOPLASTIN TIME PARTIAL (test code = PTT) 31.3 seconds 25.0-36. 5 N IS PATIENT ON ANTICOAGULANTS? NB-TYPE NATRIURETIC [id number] 09:10:00* Test Item Value Reference Range Interpretation Comments B-TYPE NATRIURETIC PEPTIDE (test code = BNP) 505.60 pgram/mL 0-100 H CBC W/O [id number] 08:39:00* Test Item Value Reference Range Interpretation Comments WHITE BLOOD CELL (test code = WBC) 9.3 K/mm3 4.5-12.5 N RED BLOOD CELL (test code = RBC) 3.27 mill/mm3 3.7-5.2 L HEMOGLOBIN (test code = HGB) 9.8 gram/dL 11.5-15.5 L HEMATOCRIT (test code = HCT) 31.5 % 36.0-46.0 L MEAN CELL VOLUME (test code = MCV) 96.3 fL 80-98 N MEAN CELL HGB (test code = MCH) 30.0 picogram 27.0-33.0 N MEAN CELL HGB CONCETRATION (test code = MCHC) 31.1 gram/dL 33.0-36. 0 L RED CELL DISTRIBUTION WIDTH (test code = RDW) 13.8 % 11.6-16. 2 N PLATELET COUNT (test code = PLT) 348 K/mm3 150-450 N MEAN PLATELET VOLUME (test code = MPV) 9.3 fL 6.7-11.0 N BASIC METABOLIC [id number] 08:31:00* Test Item Value Reference Range Interpretation Comments SODIUM (test code = NA) 129 mmol/L 136-145 L POTASSIUM (test code = K) 4.6 mmol/L 3.5-5.1 N CHLORIDE (test code = CL) 98.0 mmol/L 98-107 N CARBON DIOXIDE (test code = CO2) 21.0 mmol/L 21-32 N ANION GAP (test code = GAP) 14.6 10-20 N GLUCOSE (test code = GLU) 95 mg/dL 74-106 N BLOOD UREA NITROGEN (test code = BUN) 39 mg/dL 7-18 H GLOMERULAR FILTRATION RATE (test code = GFR) 30 mL/min >=60 Estimated GFR by using Modified MDRD formula.Chronic kidney disease is defined as either kidney damageor GFR <60 mL/min/1.73 m2 for >3 months. CREATININE (test code = CREAT) 1.70 mg/dL 0.55-1.02 H Note change in reference range due to change in reagent. BUN/CREATININE RATIO (test code = BUN/CREA) 22.9 10-20 H CALCIUM (test code = CA) 8.9 mg/dL 8.5-10.1 N HEPATIC FUNCTION [id number] 08:31:00* Test Item Value Reference Range Interpretation Comments TOTAL PROTEIN (test code = PROT) 8.1 gram/dL 6.4-8.2 N ALBUMIN (test code = ALB) 3.2 g/dL 3.4-5.0 L GLOBULIN (test code = GLOB) 4.9 gram/dL 2.7-4.2 H ALBUMIN/GLOBULIN RATIO (test code = A/G) 0.7 0.75-1.50 L BILIRUBIN TOTAL (test code = BILT) 0.40 mg/dL 0.0-1.0 N BILIRUBIN DIRECT (test code = BILD) 0.15 mg/dL 0.0-0.20 N SGOT/AST (test code = AST) 17 IUnit/L 15-37 N SGPT/ALT (test code = ALT) 22 IUnit/L 12-78 N ALKALINE PHOSPHATASE TOTAL (test code = ALKP) 79 IUnit/L 45-117 N Note change in reference range due to change in reagent. [id number] 08:31:00* Test Item Value Reference Range Interpretation Comments LIPASE (test code = LIP) 190 U/L 73.0-393.0 N [id number] 08:31:00* Test Item Value Reference Range Interpretation Comments MAGNESIUM (test code = MAG) 1.9 mg/dL 1.8-2.4 N [id number] 08:31:00* Test Item Value Reference Range Interpretation Comments TROPONIN-I (test code = TROPI) <0.015 ng/mL 0-0.045 N BASIC METABOLIC [id number] 08:22:00* Test Item Value Reference Range Interpretation Comments SODIUM (test code = NA) 129 mmol/L 136-145 L POTASSIUM (test code = K) 4.6 mmol/L 3.5-5.1 N CHLORIDE (test code = CL) 98.0 mmol/L 98-107 N CARBON DIOXIDE (test code = CO2) mmol/L 21-32 ANION GAP (test code = GAP) 10-20 GLUCOSE (test code = GLU) mg/dL 74-106 BLOOD UREA NITROGEN (test code = BUN) mg/dL 7-18 GLOMERULAR FILTRATION RATE (test code = GFR) mL/min >=60 CREATININE (test code = CREAT) mg/dL 0.55-1.02 BUN/CREATININE RATIO (test code = BUN/CREA) 10-20 CALCIUM (test code = CA) mg/dL 8.5-10.1 HEPATIC FUNCTION [id number] 08:22:00* Test Item Value Reference Range Interpretation Comments TOTAL PROTEIN (test code = PROT) gram/dL 6.4-8.2 ALBUMIN (test code = ALB) g/dL 3.4-5.0 GLOBULIN (test code = GLOB) gram/dL 2.7-4.2 ALBUMIN/GLOBULIN RATIO (test code = A/G) 0.75-1.50 BILIRUBIN TOTAL (test code = BILT) mg/dL 0.0-1.0 BILIRUBIN DIRECT (test code = BILD) mg/dL 0.0-0.20 SGOT/AST (test code = AST) IUnit/L 15-37 SGPT/ALT (test code = ALT) IUnit/L 12-78 ALKALINE PHOSPHATASE TOTAL (test code = ALKP) IUnit/L 45-117 [id number] 08:22:00* Test Item Value Reference Range Interpretation Comments LIPASE (test code = LIP) U/L 73.0-393.0 [id number] 08:22:00* Test Item Value Reference Range Interpretation Comments MAGNESIUM (test code = MAG) mg/dL 1.8-2.4 [id number] 08:22:00* Test Item Value Reference Range Interpretation Comments TROPONIN-I (test code = TROPI) ng/mL 0-0.045 - XR CHEST 1 [id number] 08:22:00 FAX: Diego Remy MD [phone] [place]: St: [facility] FAX: Darcy Morrow MD [phone] Name: SOLEDADJACINTOKAREN GARCIA [facility] [place] : 1950 Age/S: 67/F [address] [facility] Unit #: [id number] Loc: [place] [address] Phys: Darcy Morrow MD Acct: [id number] Dis Date: Status: REG ER PHONE #: [phone] Exam Date: 09/30/2018 0749 FAX #: [phone] Reason: Shortness of Breath EXAMS: CPT CODE: [id number] XR CHEST 1 V 55273 HISTORY: Shortness of breath. COMPARISON: April 18, 2018. Mild congestion. Small bibasal effusions. Dependent changes. Cardiomegaly. IMPRESSION: Mild congestion with small basilar effusions. at 0822 Reported and signed by: Abbe Yip M.D. CC: Diego Ledesma MD; Darcy Morrow MD Technologist: HOLLAND KULKARNI JR Trnscrd Date/Time/By: 09/30/2018 (0822) : By: Luis [email or web address] Orig Print D/T: S: 09/30/2018 (0671) PAGE 1 Signed Report COLON [id number] 12:35:00 RUN DATE: 05/18/18 [facility] PAGE 1 RUN TIME: 1235 Specimen Inqui ry RUN USER: INTERFACE PATIENT: SOLEDADJACINTOAmosKNIGKAREN ACCT #: [id number] LOC: [place] U #: [id number] AGE/SX: 67/F ROOM: RE05/17/18REG DR: Diego Ledesma MD : 52 BED: DIS: STATUS: AMA MURILLO TLOC: SPEC #: [id number] RECD: 05/17/18 STATUS: ZACHARY SENA #: [id number] AMI: 05/17/18 [facility] DR: Diego Ledesma MD ENTERED: 05/17/18 SP TYPE: COLONBX OTHR DR: ORDERED: GROSS PROCEDURES: GROSS (05/18/18) TISSUES: 1. ILEOCECAL VALVE - HS 2. [...] HOID AGGREGATE NEGATIVE FOR MALIGNANCY IZZY/sm D (6) 12472 CONTINUED ON NEXT PAGE RUN DATE: [place] - Lab PAGE 2 RUN TIME: 1235 Specimen Inquiry RU N USER: INTERFACE ---- --------SPEC #: [id number] PATIENT: LISETHAmosKINGKAREN ABEBE #[id number] (Continued) MACROSCOPIC The first specimen is received [...] in cassette (4). GROSS PER FORMED AT [facility] [address] [place] [address] [phone] MICROSCOPIC MICROSCOPIC PERFOR MED AT [facility] All of the stains, including any controls perfor med, stain appropriately. [facility] [address] [place], [place] [address] ([phone] PERFORMING SITE Diagnosis performed at: [facility], [place] [address] [place] [address] Signed SIGNATURE ON FILE Armida Jimenes 05/18/18 1235 END OF REPORT [id number] 16:33:00Normal (05/05/2011 10:33:00) ??[facility] FrhqbcgFCAKHGZHBE5608-47-97 16:33:000.0[facility] HyhrkmwRSRNWLZILC5248-93-18 16:33:00Normal (05/05/2011 10:33:00) ??[facility] MixlnfvBWFCRFXQOX1087-13-34 16:33:004.0[facility] QhnxlxsLGYQTKPFTC3978-24-57 16:33:0015.0[facility] TmxcsetDYVNTRNELJ4459-46-67 16:33:007.0[facility] [place] [id number] 16:33:005.0[facility] SipvhmmFOKDBVHYBY3745-75-93 16:33:00 69.0[facility] ZapvljiICYEPMZTWE7517-48-83 16:33:000.6[facility] 2011-05-05 16:33:000.4[facility] QuyxbivSPKNISKTAV9367-38-66 16:33:001.2[facility] ZcftofdADRARTPKNF1431-19-70 16:33:005.9[facility] QmmdkgbNALZWOQUAE5610-47-51 16:33:0010.8[facility] QuriagwNEQLNJLLVP2605-00-41 16:33:31287.0[facility] JJJSNEERFT8898-28-25 16:33:0034.3[facility] NmcozenYRDYNJMIZK5628-08-15 16:33:00 13.8[facility] HdaleqwWYGUIGVYFD7007-81-88 16:33:00* Test Item Value Reference Range Interpretation Comments MCH (test code = MCH) 33.1 pg 27.0-31.0 H [facility] IwaulaaZQBDTFDBSL7088-17-77 16:33:0031.3[facility]annHEMATOLOGY 2011-05-05 16:33:0096.4[facility] PtdurcgAZEUPJHWFR4598-93-58 16:33:008.2[facility] OvroitoKPTDNYBOPC2691-04-04 16:33:008.1[facility] AgyscfvOTPKQCMPJE4696-34-80 16:33:003.25[facility] LyxwfvnYWCXGESPMA9695-60-55 16:33:001.7[facility] NWYLKECFNZ2626-14-32 16:33:00<10.0[facility]UhrvvmtAMJOCMZRKM9909-04-09 16:33:00 Negative (05/05/2011 10:33:00) ??[facility]
--- OUTSIDE RECORDS SUMMARY | 2020-04-26 21:17 | XMS REPORT | Continuity of Care Document ---
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 Name Role Phone [facility] [employer] Unavailable Un available Problems Problem Status Onset Date Classification Date Reported Comments Source ANEMIA 280.9 Active 04/29/2011 [facility] ANEMIA 285.9 Active 04/29/2011 [facility] Diabetes mellitus type II Acti ve Problem [facility] HTN - Hypertension Active Problem 05/07/2011 [facility] Macular disease Active Problem 05/07/2011 [facility] Diabetes mellitus type 2 (disorder) Active Problem [facility] Hypertensive disorder, systemic arterial (disorder) Active Problem 09/07/2019 [facility] 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 Problem 09/07/2019 [facility] LOW BACK PAIN Active [facility] BACKACHE NOS Active [facility] ANEMIA NOS Active [facility] Medications Medication Details Route Status Patient Instructions Ordering Provider Order Date Source Duetact 30 mg-2 mg oral tablet 1 tab, PO, Daily, 30 tab, Substitution Allowed, Maintenance, TAB PO Active 05/05/2011 [facility] Bystolic 10 mg oral tablet 1 t ab, PO, Daily, 30 tab, Substitution Allowed, TAB PO Active 05/05/2011 [facility] Janumet 50 mg/1000 mg oral tablet 1 tab, PO, BID, 60 tab, Substitution Allowed, Maintenance, TAB PO Active 05/05/2011 [facility] amlodipine-atorvastatin 5 mg-20 mg oral tablet 1 tab, PO, Daily, 30 tab, Substitution Allowed, Maintenance, TAB PO Active 05/05/2011 [facility] aspirin 81 mg tablet, enteric coated 1 tab, PO, Daily, 0 tab, Substitution Allowed, ECTAB PO Active 05/05/2011 [facility] lovastatin 40 mg oral tablet 1 tab, PO, Daily, 30 tab, Substitution Allowed, TAB PO Active 05/05/2011 [facility] gabapentin 400 mg oral capsule 1 cap, PO, QID, 120 cap, Substitution Allowed PO Active 05/05/2011 [facility] levothyroxine 75 mcg (0.075 mg) oral tablet 1 tab, PO, Daily, 30 tab, Substitution Allowed, TAB PO Active 05/05/2011 [facility] Allergies, Adverse Reactions, Alerts Substance Category Reaction Severity Reaction type Status Date Reported Comments Source No Known Medication Allergies Assertion Drug aller gy [facility] [place] Immunizations No Data Provided for This Section Results Order Name Results Value Reference Range Date Interpretation Comments Source HEMATOLOGY Plt Morph Debbi l (05/05/2011 10:33:00) ?? 05/05/2011 Normal [facility] HEMATOLOGY Atypical Lymphs 0.0 <<=0.0 05/05/2011 Normal [facility] HEMATOLOGY RBC Morph Debbi l (05/05/2011 10:33:00) ?? 05/05/2011 Normal [facility] HEMATOLOGY Bands 4.0 0.0 - 11.0 05/05/2011 Normal [facility] HEMATOLOGY Lymphocytes 15.0 20.0 - 40.0 05/05/2011 LOW [facility] HEMATOLOGY Monocytes 7.0 2.0 - 12.0 05/05/2011 Normal [facility] HEMATOLOGY Eosinophils 5.0 0.0 - 4.0 05/05/2011 HI [facility] HEMATOLOGY Segs 69.0 45.0 - 75.0 05/05/2011 Normal [facility] HEMATOLOGY Monocytes # 0.6 0.0 - 0.8 05/05/2011 Normal [facility] HEMATOLOGY Eosinophils # 0.4 0.0 - 0.5 05/05/2011 Normal [facility] HEMATOLOGY Lymphocytes # 1.2 1.0 - 5.5 05/05/2011 Normal [facility] HEMATOLOGY Segs-Bands # 5.9 1.5 - 8.1 05/05/2011 Normal [facility] HEMATOLOGY Hgb 10.8 12.0 - 16.0 05/05/2011 LOW [facility] HEMATOLOGY Platelet 351.0 133 - 450 05/05/2011 Normal [facility] HEMATOLOGY MCHC 34.3 32.0 - 36.0 05/05/2011 Normal [facility] HEMATOLOGY RDW 13.8 11.5 - 14.5 05/05/2011 Normal [facility] HEMATOLOGY MCH 33.1 27.0 - 31.0 05/05/2011 [facility] HEMATOLOGY Hct 31.3 36.0 - 48.0 05/05/2011 LOW [facility] HEMATOLOGY MCV 96.4 81.0 - 99.0 05/05/2011 Normal [facility] HEMATOLOGY MPV 8.2 7.4 - 10.4 05/05/2011 Normal [facility] HEMATOLOGY WBC 8.1 3.7 - 10.4 05/05/2011 Normal [facility] HEMATOLOGY RBC 3.25 4.20 - 5.40 05/05/2011 LOW [facility] HEMATOLOGY Retic Auto 1.7 0.5 - 1.5 05/05/2011 HI [facility] IMMUNOLOGY RF Qnt <10.0 0 - 20 05/05/2011 Normal [facility] IMMUNOLOGY XAVI Negat andrea (05/05/2011 10:33:00) ?? >Nega tive 05/05/2011 Normal [facility] Pathology Reports No Data Provided for This Section Diagnostic Reports Report Value Date Source Retroperitoneal Complete US ST UDY: Retroperitoneal ultrasound COMPARISON: None. HISTORY: - N18.4 Chronic kidney disease, stage 4 (severe) FINDINGS: Ultrasound imaging of the kidneys and bladder was performed. Aorta: Normal in caliber. IVC: Patent. Right kidney: Echogenic. Measures 9.3 cm in length. Cortical thickness of 1.3 cm. No hydronephrosis. No echogenic shadowing renal stones. Left kidney: Echogenic. Measures 9.0 cm in length. Cortical thickness of 1.5 cm. No hydronephrosis. No echogenic shadowing renal stones. Urinary bladder: Normal. Prevoid volume is 245 ml. Postvoid volume is 16 ml. Ureteral jet (s): Bilateral ureteral jets are seen. IMPRESSION: Echogenic kidneys in keeping with known chronic kidney disease. No hydronephrosis. 09/05/2019 [facility] Consultation Notes No Data Provided for This Section Discharge Summaries No Data Provided for This Section History and Physicals No Data Provided for This Section Vital Signs Vital Sign Value Date Comments Source Weight 83.636 05/05/2011 [facility] Height 167.64 cm 05/05/2011 [facility] Encounters Location Location Details Encounter Type Encounter Number Reason For Visit Attending Provider ADM Date DC Date Status Source [facility] Outpatient [id number] LOW BACK PAIN MAYOCL CAZARES 04/21/2011 [facility] Outpatient [id number] ANEMIA 285.9 KONSTANTIN CAROLE 05/05/2011 [facility] [place] [facility] [id number] Kelvin Hermosillo 09/05/2019 09/06/2019 [facility] Procedures No Data Provided for This Section Assessment and Plan No Data Provided for This Section Plan of Care No Data Provided for This Section Social History Social History Date Source Social History TypeResponse 09/06/2019 [facility] Family History No Data Provided for This Section Advance Directives No Data Provided for This Section Functional Status No Data Provided for This Section
[2020-04-26] MEDS ORDERED: DEXTROSE 50% SYRINGE 50 ML IV STA (21:39)
[2020-04-26] MEDS ORDERED: INSULIN REGULAR, HUMAN 100 UNIT/1 ML 3ML VIAL IV ONE (21:45)
[2020-04-26] MEDS ORDERED: SOD POLYSTYRENE SULFONATE SUSP 15 GM/60 ML BTL PO ONE (21:45)
--- OUTSIDE RECORDS SUMMARY | 2020-04-26 22:34 | XMS REPORT | Continuity of Care Document ---
Author Author [facility] t Organization [facility] Address [address] [place] [address] Phone Unavailable Care Team Providers Care Vice Admiral Name Role Phone GENE STOUT MD PCP Mika Hermosillo Attphys Payers Payer Name Policy Type Policy Number Effective Date Expiration Date S ource Medicare A & B [id number] 2018 00:00:00 [facility] TMHP [id number] [facility] Problems Condition Name Condition Details Condition Category [...] type 2 (disorder) Active Problem 09/07/2019 OPID [place] Problem Active 2019-09-07 23:26:21 Woody Jensen Hypertensive disorder, systemic arterial (disorder) Hypertensive disorder, systemic arterial (disorder) Active Problem 09/07/2019 OPID [place] Problem Active 2019-09-07 23:26:21 Woody Jensen 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 No Known Medication Allergies No Known Medication Allergies Active [facility] Medications Ordered Medication Name Filled Medication Name Start Date Stop Da te Current Medication? Ordering Clinician Indication Dosage Frequency Signature (SIG) Comments Components Source Duetact 30 mg-2 mg oral tablet 2011-05-05 16:27:46 Yes 1 tab, PO, Daily, 30 tab, Substitution Allowed, Maintenance, TAB Wodoy Jensen Bystolic 10 mg oral tablet 2011-05-05 16:27:20 Yes 1 tab, PO, Daily, 30 tab, Substitution Allowed, TAB Shaquille Hamlin Janumet 50 mg/1000 mg oral tablet 2011-05-05 16:27:07 Yes 1 tab, PO, BID, 60 tab, Substitution Allowed, Maintenance, TAB Woody Hull amlodipine-atorvastatin 5 mg-20 mg oral tablet 2011-05-05 16:26: 50 Yes 1 tab, PO, Daily, 30 tab, Substitution Allowed, Mainte nance, TAB Woody Jensen aspirin 81 mg tablet, enteric coated 2011-05-05 16:26:23 Ye s 1 tab, PO, Daily, 0 tab, Substitution Allowed, ECTAB [facility] lovastatin 40 mg oral tablet 2011-05-05 16:26:06 Yes 1 tab, PO, Daily, 30 tab, Substitution Allowed, TAB Woody Mikey gabapentin 400 mg oral capsule 2011-05-05 16:25:54 Yes 1 cap, PO, QID, 120 cap, Substitution Allowed Seanbashir duncanodette Jensen levothyroxine 75 mcg (0.075 mg) oral tablet 2011-05-05 16:25:38 Yes 1 tab, PO, Daily, 30 tab, Substitution Allowed, TAB [facility] Mikey Atorvastatin Calcium 20 Mg Tablet Atorvastatin Calcium 20 Mg Tablet Yes 20 Bedtime [facility] Calcium Carbonate/Vitamin D3 (Caltrate-600 With Vit D Tab) 1 Each Tablet Calcium Carbonate/Vitamin D3 (Caltrate-600 With Vit D Tab) 1 Each Tablet Yes 1 Daily [facility] Furosemide 40 Mg Tablet Furosemide 40 Mg Tablet Yes 40 Daily [facility] Gabapentin 400 Mg Capsule Gabapentin 400 Mg Capsule Yes 400 Daily [facility] Glimepiride 2 Mg Tablet Glimepiride 2 Mg Tablet Yes 4 With Breakfast [facility] Insuln Asp Prt/Insulin Aspart (Novolog M ix 70-30 Flexpen Syrn) 100 Unit/1 Ml Insuln.pen Insuln Asp Prt/Insulin Aspart (Novolog M ix 70-30 Flexpen Syrn) 100 Unit/1 Ml Insuln.pen Yes 10 Every Morning [facility] Levothyroxine Sodium 100 Mcg Vial Levothyroxine Sodium 100 Mcg Vial Yes 100 Daily [facility] Linagliptin (Tradjenta) 5 Mg Tablet Linagliptin (Tradjenta) 5 Mg Tabl et Yes 5 Daily [facility] Losartan Potassium 100 Mg Tablet Losartan Potassium 100 Mg Tablet Yes 100 Daily [facility] Metoprolol Succinate 50 Mg Tab.er.24h Metoprolol Succinate 50 Mg Ta b.er.24h Yes 100 Daily [facility] Pantoprazole Sodium (Protonix) 40 Mg Tablet. Pantopr azole Sodium (Protonix) 40 Mg Tablet. Yes 40 Daily [facility] Pioglitazone Hcl 45 Mg Tablet Pioglitazone Hcl 45 Mg Tablet Yes 30 Daily [facility] Tizanidine Hcl 4 Mg Tablet Tizanidine Hcl 4 Mg Tablet Yes 4 Daily [facility] Vital Signs Vital Name Observation Time Observation Value Comments Source Weight 2011-05-05 16:00:00 Woody Jensen Height 2011-05-05 16:00:00 167.64 cm [facility] Procedures This patient has no known procedures. Encounters Start Date/Time End Date/Time Encounter Type Admission Type Attendi [facility] Care Department Encounter ID Source 2019-09-05 13:04:00 2019-09-05 23:59:00 Outpatient Vibha Hermosillo [facility] [id number] 2019-01-10 18:25:00 2019-01-10 22:08:00 Discharged Inpatient (obs) [facility] [id number] [facility] Results Test Description Test Time Test Comments Results Result Comments Source SCR MAMM BILATERAL TR CAD DIGITAL 2020-03-21 16:00:45 - SCR MAMM BILATERAL TR CAD DIGITALBILATERAL DIGITAL SCREENING MAMMOGRAM 3D/2D WITH CAD: 03/21/2020CLINICAL: Asymptomatic. Digital breast tomosynthesis was performed in addition to routine CC and MLO views. Current mammographic images were evaluated by either a Curbside M-Vu or a [employer] ImageChecker CAD (computer aided detection system). Comparison is made to exams dated 03/14/2019 mammogram, 03/17 mammogram, and 03/03/2017 mammogram - [facility]. The tissue of both breasts is heterogeneously dense. This may lower the sensitivity of mammography. No suspicious mass, architectural distortion, malignant type calcification, or lymph node abnormality detected. Breast architecture is stable compared to prior exams.IMPRESSION: NEGATIVEThere is no mammographic evidence of malignancy. Resume annual screening mammography in one year. Gucci Rutledge M.D. ss/penrad:03/21/2020 16:00:45 Consumer Science Teacher: Rosetta HIRSCH, [facility] sent: BIRADS 1-2 Normal Mammogram BI-RADS: 1 Negative Sodium Level 2019-01-06 14:38:00 Test Item Sodium Level (test code = 2951-2) 130 136-145 L [facility] CenterPotassium Oadpl9239-58-83 14:38:00* Test Item Value Reference Range Interpretation Comments Potassium Level (test code = 2823-3) 5.3 3.5-5.1 H [facility] CenterChloride Evjvg8677-18-28 14:38:00* Test Item Value Reference Range Interpretation Comments Chloride Level (test code = 2075-0) 94 98-107 L [facility] CenterCarbon Dioxide Wrdso0621-73-62 14:38:00* Test Item Value Reference Range Interpretation Comments Carbon Dioxide Level (test code = 2028-9) 26 22-29 [facility] CenterAnion Toe1577-25-51 14:38:00* Test Item Value Reference Range Interpretation Comments Anion Gap (test code = 31778-8) 15.3 8-16 [facility] CenterBlood Urea Jcahlflt7186-71-19 14:38:00* Test Item Value Reference Range Interpretation Comments Blood Urea Nitrogen (test code = 3094-0) 36 7-26 H [facility] CenterCreatinine2019-07-19 14:38:00* Test Item Value Reference Range Interpretation Comments Creatinine (test code = 2160-0) 1.61 0.57-1.11 H [facility] CenterBUN/Creatinine Korqf5665-43-69 14:38:00* Test Item Value Reference Range Interpretation Comments BUN/Creatinine Ratio (test code = 3097-3) 22 6-25 [facility] CenterEstimat Glomerular Filtration Rate 2019-01-06 14:38:00* Test Item Value Reference Range Interpretation Comments Estimat Glomerular Filtration Rate (test code = 746470746) 32 >60 L Ranges were taken from the National Kidney Disease Education Program and the [facility] Kid[facility] Foundation literature.Reference ranges:60 or greater: Cbrnxn82-64 ( for 3 consecutive months): Chronic kidney disease 15 or less: Kidney failureVal Verde Regional Medical CenterGlucose Ityjx7325-08-87 14:38:00* Test Item Value Reference Range Interpretation Comments Glucose Level (test code = LJG7976) 188 74-118 H [facility] CenterCalcium Lmkfk9495-35-14 14:38:00* Test Item Value Reference Range Interpretation Comments Calcium Level (test code = 95616-1) 10.0 8.4-10.2 [facility] CenterTotal Ksljyvujk3193-48-75 14:38:00* Test Item Value Reference Range Interpretation Comments Total Bilirubin (test code = 1975-2) 0.3 0.2-1.2 [facility] CenterAspartate Amino Transf (AST/SGOT) 2019-01-06 14:38:00* Test Item Value Reference Range Interpretation Comments Aspartate Amino Transf (AST/SGOT) (test code = Aspartate Amino Transf (AST/SGOT)) 19 5-34 [facility] CenterAlanine Aminotransferase (ALT/SGPT) 2019-01-06 14:38:00* Test Item Value Reference Range Interpretation Comments Alanine Aminotransferase (ALT/SGPT) (test code = 1742-6) 14 0-55 [facility] CenterTotal Chocfzk0971-15-60 14:38:00* Test Item Value Reference Range Interpretation Comments Total Protein (test code = 2885-2) 7.6 6.5-8.1 [facility] CenterAlbumin2019-07-19 14:38:00* Test Item Value Reference Range Interpretation Comments Albumin (test code = 1751-7) 3.7 3.5-5.0 [facility] CenterGlobulin2019-07-19 14:38:00* Test Item Value Reference Range Interpretation Comments Globulin (test code = 31566-0) 3.9 2.3-3.5 H [facility] CenterAlbumin/Globulin Cphqk5711-20-08 14:38:00 * Test Item Value Reference Range Interpretation Comments Albumin/Globulin Ratio (test code = 1759-0) 0.9 0.8-2.0 [facility] CenterAlkaline Wqceayvdjcc2498-87-46 14:38:00* Test Item Value Reference Range Interpretation Comments Alkaline Phosphatase (test code = 6768-6) 81 40-150 [facility] CenterProthrombin Awgs1789-47-11 14:29:00* Test Item Value Reference Range Interpretation Comments Prothrombin Time (test code = 5902-2) 12.1 11.9-14.5 [facility] CenterProthromb Time International Ratio 2019-01-06 14:29:00* Test Item Value Reference Range Interpretation Comments Prothromb Time International Ratio (test code = 6301-6) 0.85 Oral Anticoagulant Therapy INR Values:1. Low Intensity Therapy 1.5 - 2.02 . Moderate Intensity Therapy 2.0 - 3.03. High Intensity Therapy(1) 2.5 - 3. 54. High Intensity Therapy(2) 3.0 - 4.05. Panic Value INR > 5.0 [facility] CenterWhite Blood Osgcj9316-27-36 14:20:00* Test Item Value Reference Range Interpretation Comments White Blood Count (test code = 6690-2) 7.36 4.8-10.8 [facility] CenterRed Blood Warhq5076-01-33 14:20:00* Test Item Value Reference Range Interpretation Comments Red Blood Count (test code = 789-8) 3.61 3.6-5.1 [facility] CenterHemoglobin2019-07-19 14:20:00* Test Item Value Reference Range Interpretation Comments Hemoglobin (test code = 80754-4) 11.7 12.0-16.0 L [facility] CenterHematocrit2019-07-19 14:20:00* Test Item Value Reference Range Interpretation Comments Hematocrit (test code = 4544-3) 36.1 34.2-44.1 [facility] CenterMean Corpuscular Wfsjrs0092-20-93 14:20:00* Test Item Value Reference Range Interpretation Comments Mean Corpuscular Volume (test code = 787-2) 100.0 81-99 H [facility] CenterMean Corpuscular Okeedruduq3675-81-64 14:20:00* Test Item Value Reference Range Interpretation Comments Mean Corpuscular Hemoglobin (test code = 785-6) 32.4 28-[address] [facility] Corp[facility] Hemoglobin Concent 2019-01-06 14:20:00* Test Item Value Reference Range Interpretation Comments Mean Corpuscular Hemoglobin Concent (test code = 786-4) 32.4 31-35 [facility] CenterRed Cell Distribution Onrrb2051-57-27 14:20:00* Test Item Value Reference Range Interpretation Comments Red Cell Distribution Width (test code = 42684-1) 15.3 11.7 -14.4 H [facility] CenterPlatelet Hqqxv2322-42-21 14:20:00* Test Item Value Reference Range Interpretation Comments Platelet Count (test code = 777-3) 398 140-360 H [facility] CenterNeutrophils (%) (Auto)2019-01-06 14:20:00 * Test Item Value Reference Range Interpretation Comments Neutrophils (%) (Auto) (test code = 97419-7) 75.9 38.7-80.0 [facility] CenterLymphocytes (%) (Auto)2019-01-06 14:20:00 * Test Item Value Reference Range Interpretation Comments Lymphocytes (%) (Auto) (test code = 736-9) 8.0 18.0-39.1 L [facility] CenterMonocytes (%) (Auto)2019-01-06 14:20:00* Test Item Value Reference Range Interpretation Comments Monocytes (%) (Auto) (test code = 5905-5) 12.0 4.4-11.3 H [facility] CenterEosinophils (%) (Auto)2019-01-06 14:20:00 * Test Item Value Reference Range Interpretation Comments Eosinophils (%) (Auto) (test code = 713-8) 3.3 0.0-6.0 [facility] CenterBasophils (%) (Auto)2019-01-06 14:20:00* Test Item Value Reference Range Interpretation Comments Basophils (%) (Auto) (test code = 706-2) 0.5 0.0-1.0 [facility] CenterIM GRANULOCYTES %2019-01-06 14:20:00* Test Item Value Reference Range Interpretation Comments IM GRANULOCYTES % (test code = IM GRANULOCYTES %) 0.3 0.0- 1.0 [facility] CenterNeutrophils # (Auto)2019-01-06 14:20:00* Test Item Value Reference Range Interpretation Comments Neutrophils # (Auto) (test code = 751-8) 5.6 2.1-6.9 [facility] CenterLymphocytes # (Auto)2019-01-06 14:20:00* Test Item Value Reference Range Interpretation Comments Lymphocytes # (Auto) (test code = 54780-4) 0.6 1.0-3.2 L [facility] CenterMonocytes # (Auto)2019-01-06 14:20:00* Test Item Value Reference Range Interpretation Comments Monocytes # (Auto) (test code = 742-7) 0.9 0.2-0.8 H [facility] CenterEosinophils # (Auto)2019-01-06 14:20:00* Test Item Value Reference Range Interpretation Comments Eosinophils # (Auto) (test code = 711-2) 0.2 0.0-0.4 [facility] CenterBasophils # (Auto)2019-01-06 14:20:00* Test Item Value Reference Range Interpretation Comments Basophils # (Auto) (test code = 704-7) 0.0 0.0-0.1 [facility] CenterAbsolute Immature Granulocyte (auto 2019-01-06 14:20:00* Test Item Value Reference Range Interpretation Comments Absolute Immature Granulocyte (auto (jovi t code = Absolute Immature Granulocyte (auto) 0.02 0-0.1 [facility] CenterPROTHROMBIN EFZA7961-50-62 09:16:00* Test Item Value Reference Range Interpretation [...] (2.5-3.5) IS PATIENT ON ANTICOAGULANTS? NTHROMBOPLASTIN TIME ENUSWTF9498-07-39 09:16:00* Test Item Value Reference Range Interpretation Comments THROMBOPLASTIN TIME PARTIAL (test code = PTT) 31.3 seconds 25.0-36. 5 N IS PATIENT ON ANTICOAGULANTS? NB-TYPE NATRIURETIC HRLSVJK8443-46-31 09:10:00* Test Item Value Reference Range Interpretation Comments B-TYPE NATRIURETIC PEPTIDE (test code = BNP) 505.60 pgram/mL 0-100 H CBC W/O SPFV0258-50-26 08:39:00* Test Item Value Reference Range Interpretation [...] MPV) 9.3 fL 6.7-11.0 N BASIC METABOLIC VCWSK9961-88-00 08:31:00* Test Item Value Reference Range Interpretation [...] CA) 8.9 mg/dL 8.5-10.1 N HEPATIC FUNCTION ZHVUL6630-18-28 08:31:00* Test Item Value Reference Range Interpretation [...] reference range due to change in reagent. IKROFU0971-67-47 08:31:00* Test Item Value Reference Range Interpretation Comments LIPASE (test code = LIP) 190 U/L 73.0-393.0 N SWTNKMEYG7594-02-15 08:31:00* Test Item Value Reference Range Interpretation Comments MAGNESIUM (test code = MAG) 1.9 mg/dL 1.8-2.4 N RNCDAUGO-Z3826-72-12 08:31:00* Test Item Value Reference Range Interpretation Comments TROPONIN-I (test code = TROPI) <0.015 ng/mL 0-0.045 N BASIC METABOLIC [id number] 08:22:00* Test Item Value Reference Range Interpretation [...] code = CA) mg/dL 8.5-10.1 HEPATIC FUNCTION TPPHH3216-40-46 08:22:00* Test Item Value Reference Range Interpretation [...] TOTAL (test code = ALKP) IUnit/L 45-117 MLDQFI3310-43-86 08:22:00* Test Item Value Reference Range Interpretation Comments LIPASE (test code = LIP) U/L 73.0-393.0 SVZYHRQPW2742-85-74 08:22:00* Test Item Value Reference Range Interpretation Comments MAGNESIUM (test code = MAG) mg/dL 1.8-2.4 HFMQYFQB-D3240-09-12 08:22:00* Test Item Value Reference Range Interpretation Comments TROPONIN-I (test code = TROPI) ng/mL 0-0.045 - XR CHEST 1 [id number] 08:22:00 FAX: Diego Remy MD [phone] [place]: St: [facility] FAX: Darcy Morrow MD [phone] Name: SOLEDADJACINTOKAREN GARCIA [facility] : 1950 Age/S: 67/F [address] [facility] Unit #: [id number] Loc: [place] [address] Phys: Darcy Morrow MD Acct: [id number] Dis Date: Status: REG ER PHONE #: [phone] Exam Date: 09/30/2018 0749 FAX #: [phone] Reason: Shortness of Breath EXAMS: CPT CODE: [id number] XR CHEST 1 V 00855 HISTORY: Shortness of breath. COMPARISON: April 18, 2018. Mild congestion. Small bibasal effusions. Dependent changes. Cardiomegaly. IMPRESSION: Mild congestion with small basilar effusions. at 0822 Reported and signed by: Abbe Yip M.D. CC: Diego Ledesma MD; Darcy Morrow MD Technologist: HOLLAND KULKARNI JR Trnscrd Date/Time/By: 09/30/2018 (0822) : By: Luis [email or web address] Orig Print D/T: S: 09/30/2018 (4147) PAGE 1 Signed Report COLON [id number] 12:35:00 RUN DATE: 05/18/18 [facility] PAGE 1 RUN TIME: 1235 Specimen Inqui ry RUN USER: INTERFACE PATIENT: SOLEDADJACINTOAmosKINGKAREN ACCT #: [id number] LOC: [place] U #: [id number] AGE/SX: 67/F ROOM: RE05/17/18REG DR: Diego Ledesma MD : 52 BED: DIS: STATUS: AMA MURILLO TLOC: SPEC #: [id number] RECD: 05/17/18 STATUS: ZACHARY SENA #: [id number] AMI: 05/17/[address] [facility] [address]: Diego Ledesma MD ENTERED: 05/17/18 [...] HOID AGGREGATE NEGATIVE FOR MALIGNANCY IZZY/sm D (3) 79726 CONTINUED ON NEXT PAGE RUN DATE: [place] [facility] PAGE 2 RUN TIME: 1235 Specimen Inquiry RU N USER: INTERFACE ---- --------SPEC #: [id number] PATIENT: LISETHAmosKINGKAREN ABEBE #[id number] (Continued) MACROSCOPIC The first specimen is received [...] in cassette (4). GROSS PER FORMED AT [facility] [address] [place] [address] (p)[phone] MICROSCOPIC MICROSCOPIC PERFOR MED AT [facility] All of the stains, including any controls perfor med, stain appropriately. [facility] [address] [place], [place] [address] (p)[phone] PERFORMING SITE Diagnosis performed at: [facility], [place] [address] [place] [address] Signed SIGNATURE ON FILE Armida Jimenes 05/18/18 1235 END OF REPORT [id number] 16:33:00Normal (05/05/2011 10:33:00) ??[facility] YxonvpxBKVNIUDQKV2363-79-52 16:33:000.0[facility] GihbxkmBZWKZGVTSC1288-31-03 16:33:00Normal (05/05/2011 10:33:00) ??[facility] TyqcsgmHOSGUMPJHB7839-57-07 16:33:004.0[facility] PuyihumGYJQNHDMMV6882-60-43 16:33:0015.0[facility] BqwoljtSBSSRSHAVM0685-49-03 16:33:007.0[facility] NZYCKNIRME8196-23-49 16:33:005.0[facility] LaquabjVKKFROSEVU5369-27-88 16:33:00 69.0[facility] WkxbdgtOSVDSZCVNA7574-87-29 16:33:000.6[facility] 2011-05-05 16:33:000.4[facility] YssgmbtIRXPTZZVIR8825-36-94 16:33:001.2[facility] SekcickMHJAVBMJNQ8212-47-18 16:33:005.9[facility] AgxccklYAJVSWLWCR1614-48-75 16:33:0010.8[facility] JcgguxkVCYYMROQGB5069-54-49 16:33:92917.0[facility] GJCEBSVHGL1751-40-22 16:33:0034.3[facility] DpxqmmhDDAUAXEJSL3385-65-62 16:33:00 13.8[facility] DogjshkUIVUYUSEYL5744-34-39 16:33:00* Test Item Value Reference Range Interpretation Comments MCH (test code = MCH) 33.1 pg 27.0-31.0 H [facility] ZivwfxtAGTBADGLYK0344-31-47 16:33:0031.3[facility]ann[facility]MATOLOGY 2011-05-05 16:33:0096.4[facility] WyjadigOTUXIWIFOL8311-76-29 16:33:008.2[facility] UrcdhvnILKFUHVDLO7329-91-14 16:33:008.1[facility] OcnqlkgSAHMZNAJFN7287-68-48 16:33:003.25[facility] WowhqiyCDWPKKMXBI1489-47-55 16:33:001.7[facility] PSYBPJRAJN3235-49-54 16:33:00<10.0[facility]St[facility] HospitalCkvjxhaJWHVGGWXYF2542-96-61 16:33:00 Negative (05/05/2011 10:33:00) ??[facility]
--- OUTSIDE RECORDS SUMMARY | 2020-04-26 22:34 | XMS REPORT | Continuity of Care Document ---
Author Author [employer] Address Unknown Phone Unavailable Care Team Providers Care Mechanic Field Service Name Role Phone [facility] [employer] Unavailable Un available Problems Problem Status Onset Date Classification Date Reported Comments Source ANEMIA 280.9 Active 04/29/2011 [facility] ANEMIA 285.9 Active 04/29/2011 [facility] Diabetes mellitus type II Acti ve Problem [facility] HTN - Hypertension Active Problem 05/07/2011 [facility] Macular disease Active Problem 05/07/2011 [facility] Diabetes mellitus type 2 (disorder) Active Problem [facility] Hypertensive disorder, systemic arterial (disorder) Active Problem 09/07/2019 [facility] 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 Problem 09/07/2019 [facility] LOW BACK PAIN Active [facility] BACKACHE NOS Active [facility] ANEMIA NOS Active [facility] Medications Medication Details Route Status Patient Instructions Ordering Provider Order Date Source Duetact 30 mg-2 mg oral tablet 1 tab, PO, Daily, 30 tab, Substitution Allowed, Maintenance, TAB PO Active 05/05/2011 [facility] Bystolic 10 mg oral tablet 1 t ab, PO, Daily, 30 tab, Substitution Allowed, TAB PO Active 05/05/2011 [facility] Janumet 50 mg/1000 mg oral tablet 1 tab, PO, BID, 60 tab, Substitution Allowed, Maintenance, TAB PO Active 05/05/2011 [facility] amlodipine-atorvastatin 5 mg-20 mg oral tablet 1 tab, PO, Daily, 30 tab, Substitution Allowed, Maintenance, TAB PO Active 05/05/2011 [facility] aspirin 81 mg tablet, enteric coated 1 tab, PO, Daily, 0 tab, Substitution Allowed, ECTAB PO Active 05/05/2011 [facility] lovastatin 40 mg oral tablet 1 tab, PO, Daily, 30 tab, Substitution Allowed, TAB PO Active 05/05/2011 [facility] gabapentin 400 mg oral capsule 1 cap, PO, QID, 120 cap, Substitution Allowed PO Active 05/05/2011 [facility] levothyroxine 75 mcg (0.075 mg) oral tablet 1 tab, PO, Daily, 30 tab, Substitution Allowed, TAB PO Active 05/05/2011 [facility] Allergies, Adverse Reactions, Alerts Substance Category Reaction Severity Reaction type Status Date Reported Comments Source No Known Medication Allergies Assertion Drug aller gy [facility] Immunizations No Data Provided for This Section Results Order Name Results Value Reference Range Date Interpretation Comments Source HEMATOLOGY Plt Morph Debbi l (05/05/2011 10:33:00) ?? 05/05/2011 Normal [facility] HEMATOLOGY Atypical Lymphs 0.0 <<=0.0 05/05/2011 Normal [facility] HEMATOLOGY RBC Morph Debbi l (05/05/2011 10:33:00) ?? 05/05/2011 Normal [facility] HEMATOLOGY Bands 4.0 0.0 - 11.0 05/05/2011 Normal [facility] HEMATOLOGY Lymphocytes 15.0 20.0 - 40.0 05/05/2011 LOW [facility] HEMATOLOGY Monocytes 7.0 2.0 - 12.0 05/05/2011 Normal [facility] HEMATOLOGY Eosinophils 5.0 0.0 - 4.0 05/05/2011 HI [facility] HEMATOLOGY Segs 69.0 45.0 - 75.0 05/05/2011 Normal [facility] HEMATOLOGY Monocytes # 0.6 0.0 - 0.8 05/05/2011 Normal [facility] HEMATOLOGY Eosinophils # 0.4 0.0 - 0.5 05/05/2011 Normal [facility] HEMATOLOGY Lymphocytes # 1.2 1.0 - 5.5 05/05/2011 Normal [facility] HEMATOLOGY Segs-Bands # 5.9 1.5 - 8.1 05/05/2011 Normal [facility] HEMATOLOGY Hgb 10.8 12.0 - 16.0 05/05/2011 LOW [facility] HEMATOLOGY Platelet 351.0 133 - 450 05/05/2011 Normal [facility] HEMATOLOGY MCHC 34.3 32.0 - 36.0 05/05/2011 Normal [facility] HEMATOLOGY RDW 13.8 11.5 - 14.5 05/05/2011 Normal [facility] HEMATOLOGY MCH 33.1 27.0 - 31.0 05/05/2011 [facility] HEMATOLOGY Hct 31.3 36.0 - 48.0 05/05/2011 LOW [facility] HEMATOLOGY MCV 96.4 81.0 - 99.0 05/05/2011 Normal [facility] HEMATOLOGY MPV 8.2 7.4 - 10.4 05/05/2011 Normal [facility] HEMATOLOGY WBC 8.1 3.7 - 10.4 05/05/2011 Normal [facility] HEMATOLOGY RBC 3.25 4.20 - 5.40 05/05/2011 LOW [facility] HEMATOLOGY Retic Auto 1.7 0.5 - 1.5 05/05/2011 [facility] IMMUNOLOGY RF Qnt <10.0 0 - 20 05/05/2011 Normal [facility] IMMUNOLOGY XAVI Negat andrea (05/05/2011 10:33:00) ?? >Nega tive 05/05/2011 Normal [facility] Pathology Reports No Data Provided for This [...] chronic kidney disease. No hydronephrosis. 09/05/2019 [facility] Consultation Notes No Data Provided for This Section Discharge Summaries No Data Provided for This Section History and Physicals No Data Provided for This Section Vital Signs Vital Sign Value Date Comments Source Weight 83.636 05/05/2011 [facility] Height 167.64 cm 05/05/2011 [facility] Encounters Location Location Details Encounter Type Encounter Number Reason For Visit Attending Provider ADM Date DC Date Status Source [facility] Outpatient [id number] LOW BACK PAIN MAYCOL CAZARES 04/21/2011 [facility] [id number] ANEMIA 285.9 KONSTANTIN CAROLE 05/05/2011 [facility] [id number] Kelvin Hermosillo 09/05/2019 09/06/2019 [facility] Procedures No Data Provided for This Section [...]
[2020-04-26] MEDS: SODIUM CHLORIDE 0.9% 1000ML 1,000 ML IV SCH (23:36)
[2020-04-27] VITALS (11 sets, daily range): BP systolic 60–150; BP diastolic 42–76
[2020-04-27] MEDS ORDERED: DEXTROSE 50% SYRINGE 50 ML IV PRN
--- NOTE | 2020-04-27 00:18 | NUR ---
ER STATES RENAL US TO BE SCHEDULED ROUTINE FOR THIS AM NOT STAT. RADIOLOGY NOTIFIED.
--- NOTE | 2020-04-27 01:52 | NUR ---
PT IS TRABSFERRED FROM ER ,PT IS AOX3 RESPIRATIONS ARE EVEN AND UNLABORED SKIN WARM AND DRY TO TOUCH .DENIES PAIN LEFT AC 20G NS AT 125 INFUSING.TELE SHOWS SR,ORIENTED THE PT TO THE ENVIRONMENT ASSESSMENT DONE ,CALL LIGHT WITH IN REACH BED IN THE LOWEST POSITION BED ALARM ON ,CALL LIGHT WITH IN REACH ,CONTINUE TO MONITOR
[2020-04-27] MEDS: SODIUM CHLORIDE 0.9% 1000ML 1,000 ML IV SCH ×2 (05:59→15:26)
--- NOTE | 2020-04-27 06:22 | NUR ---
PT RESTING ,DENIES PAIN ,CALL LIGHT WITH IN REACH CONTINUE TO MONITOR
[2020-04-27 06:54] LABS: BASOPHILS % 0.6 % (0.0-1.0); EOSINOPHILS # (AUTO) 0.1 (0.0-0.4); EOSINOPHILS % 3.9 % (0.0-6.0); HEMATOCRIT 30.6 % (34.2-44.1); HEMOGLOBIN 9.5 g/dL (12.0-16.0); LYMPHOCYTES # (AUTO) 0.6 (1.0-3.2); LYMPHOCYTES % 15.7 % (18.0-39.1); MEAN CORPUSCULAR HEMOGLOBIN 30.3 pg (28-32); MEAN CORPUSCULAR VOLUME 97.5 fL (81-99); MONOCYTES # (AUTO) 0.6 (0.2-0.8); MONOCYTES % 17.6 % (4.4-11.3); NEUTROPHILS # (AUTO) 2.3 (2.1-6.9); NEUTROPHILS % 62.2 % (38.7-80.0); PLATELET COUNT 245 x10e3/uL (140-360); RED BLOOD COUNT 3.14 x10e6/uL (3.6-5.1); RED CELL DISTRIBUTION WIDTH 14.4 % (11.7-14.4)
[2020-04-27 07:17] LABS: ALBUMIN 3.3 g/dL (3.5-5.0); ANION GAP 11.5 mmol/L (8-16); CALCIUM 8.4 mg/dL (8.4-10.2); CREATININE, SERUM 2.07 mg/dL (0.57-1.11); POTASSIUM 4.5 mmol/L (3.5-5.1)
[2020-04-27] MEDS: INSULIN REGULAR, HUMAN 100 UNIT/1 ML 3ML VIAL SQ SCH ×4 (07:30→20:39)
--- NOTE | 2020-04-27 07:30 | NUR ---
BEDSIDE REPORT GIVEN TO THE ONCOMING NURSE
[2020-04-27] MEDS ORDERED: LEVOTHYROXINE100 MCG PO (12:06)
[2020-04-27] MEDS: TIZANIDINE HCL 4 MG TAB PO SCH (12:59)
[2020-04-27] MEDS: GABAPENTIN 400 MG CAP PO SCH (13:00)
[2020-04-27] MEDS: PIOGLITAZONE HCL 15 MG TAB PO SCH (13:00)
[2020-04-27] MEDS: METOPROLOL SUCCINATE 50 MG TAB XL PO SCH (13:00)
[2020-04-27] MEDS: AMLODIPINE BESYLATE 5 MG TAB PO SCH (13:00)
[2020-04-27] MEDS: PANTOPRAZOLE SOD 40 MG TABEC PO SCH (13:00)
--- NOTE | 2020-04-27 13:14 | Diagnostic Imaging Report ---
EXAMINATION: CHEST SINGLE (PORTABLE) COMPARISON: None INDICATION: ^sob ^[id number] ^[id number] DISCUSSION: Frontal view of the chest obtained at 1242 hours. HEART AND MEDIASTINUM: The cardiomediastinal silhouette is unremarkable. LINES: None. LUNGS: The lungs are well inflated and clear. No pneumonia or pulmonary edema. PLEURA: No pleural effusion or pneumothorax. BONES AND SOFT TISSUES: No focal osseous lesion. The soft tissues are normal. IMPRESSION: No acute cardiopulmonary disease. Signed by: Dr. John Artis MD on 04/27/2020 1:11 PM
[2020-04-27] MEDS ORDERED: METOPROLOL TAR100 MG PO (13:57)
[2020-04-27] MEDS ORDERED: HUMALOG100 UNIT/3 SQ (13:57)
[2020-04-27] MEDS ORDERED: CLOPIDOGREL75 MG PO (13:58)
[2020-04-27] MEDS ORDERED: AMLODIPINE BESYL5 MG PO (13:58)
[2020-04-27] MEDS ORDERED: GLIMEPIRIDE4 MG PO (14:01)
[2020-04-27] MEDS ORDERED: ASPIRIN EC81 MG PO (14:02)
[2020-04-27] MEDS ORDERED: VITAMIN D325 MCG PO (14:03)
--- NOTE | 2020-04-27 15:27 | Diagnostic Imaging Report ---
Retroperitoneal ultrasound Indication: Acute renal failure Technique: Select images from retroperitoneal ultrasound provided for interpretation: Comparison: No prior studies for comparison. Findings: The right kidney measures 9.4 cm in greatest length. The echotexture is mildly increased. There is no evidence for mass. There is no collecting system dilatation or evidence of obstruction. No renal calculi evident. No adjacent free fluid or fluid collections. The left kidney measures 9.4 cm in greatest length. The echotexture is mildly increased. There is no evidence for mass. There is no collecting system dilatation or evidence of obstruction. No renal calculi evident. No adjacent free fluid or fluid collections. Bladder is under distended. The volume is 2.1 x 1.7 x 3.7 cm. The ureteral jets are not visible. No free fluid in the pelvis. Survey images of the liver and spleen demonstrate no abnormalities. IMPRESSION: Mildly increased renal echotexture suggestive of medical renal disease. No hydronephrosis. Under distended bladder. Signed by: Dr. John Artis MD on 04/27/2020 3:24 PM
[2020-04-27] MEDS ORDERED: INSULIN LISPRO 100 UNIT/1 ML 3ML VIAL SQ SCH (16:30)
[2020-04-27] MEDS ORDERED: INSULIN ASPART 70/30 100 UNITS/ML VIAL SC SCH (16:30)
[2020-04-27 17:16] LABS: BILIRUBIN,URINE NEGATIVE (NEGATIVE); CLARITY,URINE HAZY (CLEAR); COLOR,URINE YELLOW (YELLOW); KETONES,URINE NEGATIVE (NEGATIVE); LEUKOCYTE ESTERASE ,URINE MODERATE (NEGATIVE); NITRITE,URINE NEGATIVE (NEGATIVE); PROTEIN,URINE DIPSTICK TRACE (NEGATIVE); URINE UROBILINOGEN 0.2 mg/dL (0.2 - 1)
[2020-04-27 17:23] LABS: AMORPHOUS SEDIMENT,URINE FEW (FEW); BACTERIA,URINE MANY /HPF; EPITHELIAL CELLS,URINE FEW /LPF; MUCUS,URINE FEW (RARE); WBC,URINE (MAN) 21-50 /HPF (0-5)
--- NOTE | 2020-04-27 17:33 | Consultation ---
DATE OF CONSULTATION: Nephrology Consultation Report. REASON FOR CONSULTATION: Acute kidney injury and hyperkalemia. HISTORY OF PRESENT ILLNESS: Ms. Susu Saldana is a 69-year-old female who was told to come to the hospital because of elevated serum potassium. On arrival to this hospital, her initial serum potassium was 5.4. She had a creatinine of 2.56. Going back to the patient's medical records, in December of 2018, her serum creatinine was 1.6. We do not have another creatinine value before that time except for 2008 and at that point, it was 0.8. We do not have any inter creatinine values in between. The patient has no complaints at this time. PAST MEDICAL HISTORY: 1. The patient has a history of diabetes for about maybe 30-35 years. 2. Hypertension. 3. Coronary artery disease. 4. Hyperlipidemia. 5. Hypothyroidism. PAST SURGICAL HISTORY: She has had a hysterectomy. She has had a pacemaker placed, AICD. REVIEW OF SYSTEMS: As per HPI. MEDICATIONS: She is on: 1. Atorvastatin. 2. Gabapentin. 3. Amaryl. 4. Toprol. 5. Protonix. 6. Actos. 7. Norvasc. 8. Levothyroxine. 9. Insulin here in the hospital. PHYSICAL EXAMINATION: VITAL SIGNS: Blood pressure is 142/55, pulse 70, respirations 20. GENERAL: The patient is in no acute distress. HEENT: No increased JVD. CARDIOVASCULAR: Regular rate and rhythm. LUNGS: Clear to auscultation bilaterally. ABDOMEN: Positive bowel sounds. Nontender, nondistended. EXTREMITIES: No edema, cyanosis, clubbing. LABORATORY RESULTS: Initial potassium was 5.4. Initial BUN and creatinine were 73 and 2.56 respectively. Currently, sodium 139, potassium 4.5, chloride 109, bicarb 23, BUN and creatinine 64 and 2.0 respectively. Hemoglobin and hematocrit 9.5 and 30.6 respectively. IMPRESSION/PLAN: 1. Acute kidney injury, superimposed on chronic kidney disease. 2. Chronic kidney disease secondary to diabetes and hypertension. 3. Hyperkalemia. 4. Diabetes. 5. Hypertension. PLAN: The patient denies taking any NSAIDs or any Allen-2 inhibitors. She was given medical management for the hyperkalemia in the emergency room. Her hyperkalemia has essentially resolved. Her renal function is improving with IV fluids. It seems that the last creatinine that we have is from December of 2018 that was 1.6. We do not have any creatinine values after that time, between that time, and now. In the emergency room, the patient was given Kayexalate, insulin D50. I will continue to follow the patient with you. We will continue the IV fluids, NSAIDs, cautioned on IV contrast should be avoided. I will follow the patient with you. Thank you, Dr. Otero, for allowing me to participate in the care of this patient with you. Ather MD J CARLOS Angeles/MAISHA /[id number]
[2020-04-27 17:49] LABS: CREATININE,URINE RANDOM 26.72 mg/dL (47-110); SODIUM,URINE 67 mmol/L
--- NOTE | 2020-04-27 20:09 | History and Physical ---
CHIEF COMPLAINT: The patient was sent by the physician because the labs showed hyperkalemia. PRIMARY CARE PHYSICIAN: Satish Hidalgo MD HISTORY OF PRESENT ILLNESS: Ms Saldana is a 69-year-old female. She is a regular patient of Dr. Satish Hidalgo was sent by the primary care physician for hyperkalemia on the labs. The patient reports that she has been diagnosed with kidney disease in the past and was supposed to see a grand scribe, however, because of the pandemic she was unable to get the appointment. She denies any chest pain, nausea, vomiting. She has history of diabetes, hypertension, hyperlipidemia, and hypothyroidism. She denies any difficulty urination, abdominal pain, or any recent diarrhea. REVIEW OF SYSTEMS: GENERAL: Denies any fever or chills. HEAD: Denies any head trauma. ENT: Denies any earache. CVS: Denies any chest pain. RESPIRATORY: Denies any shortness of breath. The rest of the review of systems are negative except as in HPI. PAST MEDICAL HISTORY: Hypertension, hyperlipidemia, hypothyroidism, and diabetes. FAMILY AND SOCIAL HISTORY: She does not smoke. Does not drink. PHYSICAL EXAMINATION: VITAL SIGNS: Temperature 97.9, pulse of 77, blood pressure 142/55, respiratory rate of 18, and O2 saturation 99% on room air. HEENT: Head is atraumatic, normocephalic. CHEST: Clear to auscultation bilaterally. No wheezing. HEART: S1, S2 audible. ABDOMEN: Soft nontender. EXTREMITIES: No pedal edema. NEUROLOGIC: Awake, alert. No focal neurologic deficits. LABORATORY DATA: White count of 5000, hemoglobin 10.2, and platelets 298. Chemistry reviewed. Creatinine went from 2.56 to 2.07 after IV hydration. Potassium was 5.4 and now it is 4.5. ASSESSMENT/PLAN: Ms. Saldana is a 69-year-old female, she came in with finding of hyperkalemia on the lab work. 1. Acute kidney injury, possibly underlying chronic kidney disease, improving. We will consult Nephrology. Continue IV hydration. Reduce IV fluids to 75 mL an hour. We will discontinue losartan and Lasix, which she was taking at home. I will also order a chest x-ray. 2. Hypertension. We will start the patient on Norvasc as losartan has been stopped and the patient's blood pressure is running on the higher side. 3. Hyperkalemia that has been resolved with Kayexalate, D50 and insulin. 4. Hypothyroidism. Resume levothyroxine. 5. Type 2 diabetes mellitus. The patient is on sliding scale and she takes 70/30, the dose will be confirmed by the nursing staff and will be resumed. 6. Resume the patient's gabapentin. MD FAUSTO Kong/MODL /[id number]
[2020-04-27] MEDS: ATORVASTATIN 20 MG TAB PO SCH (20:40)
[2020-04-28] VITALS (8 sets, daily range): BP systolic 125–146; BP diastolic 50–61
[2020-04-28] MEDS: LEVOTHYROXINE SODIUM 100 MCG TAB PO SCH (05:09)
[2020-04-28] MEDS: SODIUM CHLORIDE 0.9% 1000ML 1,000 ML IV SCH (05:09)
[2020-04-28 08:24] LABS: CALCIUM 8.3 mg/dL (8.4-10.2); CREATININE, SERUM 1.57 mg/dL (0.57-1.11); MAGNESIUM 1.9 MG/DL (1.3-2.1); PHOSPHORUS 4.1 MG/DL (2.3-4.7)
[2020-04-28] MEDS: GABAPENTIN 400 MG CAP PO SCH (09:31)
[2020-04-28] MEDS: METOPROLOL SUCCINATE 50 MG TAB XL PO SCH (09:32)
[2020-04-28] MEDS: GLIMEPIRIDE 2 MG TAB PO SCH (09:33)
[2020-04-28] MEDS: PANTOPRAZOLE SOD 40 MG TABEC PO SCH (09:33)
[2020-04-28] MEDS: PIOGLITAZONE HCL 15 MG TAB PO SCH (09:33)
[2020-04-28] MEDS: TIZANIDINE HCL 4 MG TAB PO SCH (09:33)
[2020-04-28] MEDS: AMLODIPINE BESYLATE 5 MG TAB PO SCH (09:34)
--- NOTE | 2020-04-28 13:30 | NUR ---
per Dr Angeles, the IV fluids can be stopped once the current bag is finished. encourage adequate po fluid intake
--- NOTE | 2020-04-28 14:37 | Progress Note ---
DATE: 04/28/2020 Renal Progress Note SUBJECTIVE: The patient has no complaint. No chest pain. No shortness of breath. PHYSICAL EXAMINATION: VITAL SIGNS: Blood pressure 137/58, pulse 69, and respiration 14. GENERAL: The patient is in no acute distress. HEENT: No increased JVD. CARDIOVASCULAR: Regular rate and rhythm. LUNGS: Clear to auscultation bilaterally. ABDOMEN: Positive bowel sounds. EXTREMITIES: No edema, cyanosis, or clubbing. LABORATORY RESULTS: Sodium 143, potassium 4, chloride 111, bicarbonate 23, BUN and creatinine of 52 and 1.57 respectively. IMPRESSION/PLAN: 1. Acute kidney injury superimposed on chronic kidney disease. 2. Chronic kidney disease secondary to diabetes and hypertension. 3. Diabetes. 4. Hypertension. PLAN: The patient's renal function is improving. I have had her on IV fluid normal saline at 75 mL an hour. Her creatinine is now 1.57. Her baseline creatinine from December of 2018 was 1.6, so it appears that she has all returned to her baseline renal function. IV fluids can be stopped now. Her p.o. intake is good. I have the patient encouraged to do p.o. fluids. NSAIDs, ACOSTA-2 inhibitors, and IV contrast should be avoided. Ather MD J CARLOS Angeles/MAISHA /[id number]
--- NOTE | 2020-04-28 16:19 | NUR ---
patient's BS is 375, paged Dr Otero for insulin orders. 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
[2020-04-28] MEDS ORDERED: DEXTROSE 50% SYRINGE 50 ML IV PRN (16:30)
[2020-04-28] MEDS: INSULIN LISPRO 100 UNIT/1 ML 3ML VIAL SQ SCH ×2 (16:40→20:21)
[2020-04-28] MEDS: HEPARIN SOD (PORCINE) 5,000 UNIT/ML VIAL SC SCH (20:24)
[2020-04-28] MEDS: ATORVASTATIN 20 MG TAB PO SCH (20:27)
[2020-04-28] MEDS: INSULIN GLARGINE 100 UNITS/ML VIAL SQ SCH (20:40)
[2020-04-29] VITALS (8 sets, daily range): BP systolic 124–156; BP diastolic 52–68
[2020-04-29] MEDS: LEVOTHYROXINE SODIUM 100 MCG TAB PO SCH (05:29)
[2020-04-29] MEDS: INSULIN LISPRO 100 UNIT/1 ML 3ML VIAL SQ SCH ×4 (07:56→20:53)
[2020-04-29] MEDS: GLIMEPIRIDE 2 MG TAB PO SCH (08:12)
[2020-04-29] MEDS: PANTOPRAZOLE SOD 40 MG TABEC PO SCH (08:12)
[2020-04-29] MEDS: TIZANIDINE HCL 4 MG TAB PO SCH (08:23)
[2020-04-29] MEDS: GABAPENTIN 400 MG CAP PO SCH (08:23)
[2020-04-29] MEDS: HEPARIN SOD (PORCINE) 5,000 UNIT/ML VIAL SC SCH ×2 (08:23→20:52)
[2020-04-29] MEDS: PIOGLITAZONE HCL 15 MG TAB PO SCH (08:23)
[2020-04-29] MEDS: AMLODIPINE BESYLATE 5 MG TAB PO SCH (08:23)
[2020-04-29] MEDS: METOPROLOL SUCCINATE 50 MG TAB XL PO SCH (08:23)
--- NOTE | 2020-04-29 11:01 | NUR ---
Dr Busch here for rounds said, Mrs Saldana is his clinic patient and he talked to Dr Evangelista and switched to Dr Busch as Renal consult.
--- NOTE | 2020-04-29 13:34 | NUR ---
Discontinuing PT services since patient is Modified independent in functional mobility, Thank you Addendum: 04/29/20 at 1335 by Keyur stevenson PT Amended: Links added.
--- NOTE | 2020-04-29 18:30 | NUR ---
patient resting in bed. alert with no distress, call light in reach
--- NOTE | 2020-04-29 20:12 | NUR ---
Received pt in bed awake and alert. No s/sx of acute distress noted. Pt with no c/o at this time. Bedside report completed. Call gutierrez and personal items within reach. Bed low and locked. Will cont to monitor patient
[2020-04-29] MEDS: ATORVASTATIN 20 MG TAB PO SCH (20:51)
[2020-04-29] MEDS: INSULIN GLARGINE 100 UNITS/ML VIAL SQ SCH (20:53)
--- NOTE | 2020-04-29 21:37 | Discharge Summary ---
FINAL DIAGNOSES: 1. Hyperkalemia. 2. Aelwg-od-qylxulm kidney disease. 3. Hypertension. 4. Hypothyroidism. 5. Type 2 diabetes mellitus. ADMISSION HISTORY AND HOSPITAL COURSE: Ms. Saldana is a 69-year-old female, regular patient of Dr. Satish Hidalgo, presented with hyperkalemia. The patient has chronic kidney disease and acute kidney injury. Nephrology evaluated the patient. The patient will be discharged home. I have discontinued losartan. She will continue her glimepiride and Actos at home. I have discontinued losartan because of hyperkalemia. She will follow up with Nephrology as an outpatient and follow up with primary care physician as an outpatient. MD FAUSTO Kong/MODL /[id number]
--- NOTE | 2020-04-29 21:46 | NUR ---
MD in to d/c patient home, spoke with daughter via pt telephone. Will give d/c instructions to pt and daughter via phone r/t communication/translation. Daughter to pick pt up. Will d/c per orders. Pt denies discomfort at this time. Med per Aug. No s/sx of acute distress. Tele monitor removed. Will d/c IV PIV
== END 2020-04-29 22:52 | disposition home or self-care (01) | DRG 641 ==
LOC: ER 18:56 → ERHOLD 21:52 → OBSVTOIN 21:52 → MED/SURG3 04-27 00:31 → OBSVTOIN 04-27 12:13 → INTOOBSV 04-27 12:13
PROVIDERS: ADMIT Internal Medicine; ATTEND Internal Medicine
DX: E87.5 Hyperkalemia (principal); N17.9 Acute kidney failure, unspecified; E03.9 Hypothyroidism, unspecified; I25.10 Atherosclerotic heart disease of native coronary artery without angina pectoris; E78.5 Hyperlipidemia, unspecified; I12.9 Hypertensive chronic kidney disease with stage 1 through stage 4 chronic kidney disease, or unspecified chronic kidney disease; N18.9 Chronic kidney disease, unspecified; E11.22 Type 2 diabetes mellitus with diabetic chronic kidney disease; Z95.810 Presence of automatic (implantable) cardiac defibrillator; Z20.828 Contact with and (suspected) exposure to other viral communicable diseases; Z79.82 Long term (current) use of aspirin; Z79.4 Long term (current) use of insulin
CPT/HCPCS: 36415; 71045; 76770; 80048; 80053; 81001; 82550; 82553; 82570; 82948; 83735; 84100; 84300; 84484; 85025; 86850; 86900; 93005; 96372; 99284; G0378; J1644; J1815; J1817; J7030; J7799

== ENCOUNTER 2022-01-14 08:59 | Outpatient (RCR) | payer MEDICARE ==
[~2022-01-14 08:59] MED LIST changes: +AMLODIPINE BESYL5 MG PO; +ASPIRIN EC81 MG PO; +CLOPIDOGREL75 MG PO; +GLIMEPIRIDE4 MG PO; +HUMALOG100 UNIT/3 SQ; +HYDROCODON-ACE1 EA11 PO; +LEVOTHYROXINE100 MCG PO; +LIDOCAINE VISC 2% SOLN 15 ML UDC ONE; +METOPROLOL TAR100 MG PO; +MUPIROCIN 2% OINT 22 GM TUBE ONE; +VITAMIN D325 MCG PO
[2022-01-14] MEDS ORDERED: MUPIROCIN 2% OINT 22 GM TUBE ONE (12:57)
[2022-01-14] MEDS ORDERED: LIDOCAINE VISC 2% SOLN 15 ML UDC ONE (12:57)
== END 2022-01-18 ==
LOC: WCC 08:59
PROVIDERS: ATTEND Family Medicine
DX: E11.628 Type 2 diabetes mellitus with other skin complications (principal); I87.311 Chronic venous hypertension (idiopathic) with ulcer of right lower extremity; I87.312 Chronic venous hypertension (idiopathic) with ulcer of left lower extremity; L97.811 Non-pressure chronic ulcer of other part of right lower leg limited to breakdown of skin; L97.821 Non-pressure chronic ulcer of other part of left lower leg limited to breakdown of skin; I87.2 Venous insufficiency (chronic) (peripheral); R60.0 Localized edema; I10 Essential (primary) hypertension; D64.9 Anemia, unspecified; E03.9 Hypothyroidism, unspecified; E66.3 Overweight
CPT/HCPCS: 36415; 82948

== ENCOUNTER → 2022-01-23 | Outpatient (CLI) | payer OTHER ==
[~2022-01-23] MED LIST changes: -LIDOCAINE VISC 2% SOLN 15 ML UDC ONE; -MUPIROCIN 2% OINT 22 GM TUBE ONE
== END ==
LOC: CARD 09:49
PROVIDERS: ATTEND Family Medicine
DX: R60.0 Localized edema (principal); I82.812 Embolism and thrombosis of superficial veins of left lower extremity
CPT/HCPCS: 93922; 93925; 93970

== ENCOUNTER → 2022-02-18 | Outpatient (RCR) | payer MEDICARE ==
[~2022-02-18] MED LIST changes: +LIDOCAINE VISC 2% SOLN 15 ML UDC ONE; +MUPIROCIN 2% OINT 22 GM TUBE ONE
== END ==
LOC: WCC 01-19 15:19
PROVIDERS: ATTEND Family Medicine
DX: E11.628 Type 2 diabetes mellitus with other skin complications (principal); I87.311 Chronic venous hypertension (idiopathic) with ulcer of right lower extremity; I87.312 Chronic venous hypertension (idiopathic) with ulcer of left lower extremity; L97.821 Non-pressure chronic ulcer of other part of left lower leg limited to breakdown of skin; L97.811 Non-pressure chronic ulcer of other part of right lower leg limited to breakdown of skin; I87.2 Venous insufficiency (chronic) (peripheral); R60.0 Localized edema; I10 Essential (primary) hypertension; D64.9 Anemia, unspecified; E03.9 Hypothyroidism, unspecified; E66.3 Overweight

== ENCOUNTER 2022-03-18 10:37 | Outpatient (RCR) | payer MEDICARE ==
[~2022-03-18 10:37] MED LIST changes: -LIDOCAINE VISC 2% SOLN 15 ML UDC ONE; -MUPIROCIN 2% OINT 22 GM TUBE ONE
[2022-03-20] MEDS ORDERED: MUPIROCIN 2% OINT 22 GM TUBE ONE (14:14)
== END 2022-03-20 ==
LOC: WCC 10:37
PROVIDERS: ATTEND Family Medicine
DX: L76.32 Postprocedural hematoma of skin and subcutaneous tissue following other procedure (principal); E11.628 Type 2 diabetes mellitus with other skin complications; S81.802A Unspecified open wound, left lower leg, initial encounter; I87.2 Venous insufficiency (chronic) (peripheral); I10 Essential (primary) hypertension; D64.9 Anemia, unspecified; E03.9 Hypothyroidism, unspecified; E66.3 Overweight; W01.10XA Fall on same level from slipping, tripping and stumbling with subsequent striking against unspecified object, initial encounter

== ENCOUNTER 2022-04-15 09:54 | Outpatient (RCR) | payer MEDICARE, OTHER ==
[~2022-04-15 09:54] MED LIST changes: +MUPIROCIN 2% OINT 22 GM TUBE ONE
== END 2022-04-20 ==
LOC: WCC 09:54
PROVIDERS: ATTEND Family Medicine
DX: L76.32 Postprocedural hematoma of skin and subcutaneous tissue following other procedure (principal); E11.628 Type 2 diabetes mellitus with other skin complications; S81.802A Unspecified open wound, left lower leg, initial encounter; I87.2 Venous insufficiency (chronic) (peripheral); I10 Essential (primary) hypertension; D64.9 Anemia, unspecified; E03.9 Hypothyroidism, unspecified; E66.3 Overweight; W01.10XA Fall on same level from slipping, tripping and stumbling with subsequent striking against unspecified object, initial encounter

== ENCOUNTER 2022-04-29 14:40 | Outpatient (RCR) | payer MEDICARE, OTHER ==
[~2022-04-29 14:40] MED LIST changes: -MUPIROCIN 2% OINT 22 GM TUBE ONE
== END 2022-05-20 ==
LOC: WCC 14:40
PROVIDERS: ATTEND Family Medicine
DX: E11.628 Type 2 diabetes mellitus with other skin complications (principal); L76.32 Postprocedural hematoma of skin and subcutaneous tissue following other procedure; I87.2 Venous insufficiency (chronic) (peripheral); I10 Essential (primary) hypertension; E03.9 Hypothyroidism, unspecified; D64.9 Anemia, unspecified; E66.3 Overweight; W01.10XA Fall on same level from slipping, tripping and stumbling with subsequent striking against unspecified object, initial encounter